=== PATIENT | female | born 1945 | race Caucasian/White ===

== ENCOUNTER 2016-06-19 18:53 | Emergency (ER) | payer SELFPAY ==
[2016-06-19 18:53] VITALS: BMI 37.5
[2016-06-19 20:33] VITALS: TEMP 98.2
[2016-06-19] MEDS ORDERED: Dexamethasone 4 mg/1 ml IM STA (21:05)
[2016-06-19] MEDS ORDERED: Dexamethasone 4 mg/1 ml ONE (21:14)
--- NOTE | 2016-06-19 21:54 | C.PDOC ---
History Of Present Illness 70 year old patient, with a history of arthritis, presents to the ED complaining of bilateral knee pain and swelling since last night. Patient states the pain radiates to bilateral legs. Patient also complains of bilateral shoulder and arm pain. Patient denies taking any medications at home for the pain, any trauma, numbness or weakness. Time Seen by Provider: 06/19/16 20:43 Chief Complaint (Nursing): Lower Extremity Problem/Injury History Per: Patient History/Exam Limitations: no limitations Onset/Duration Of Symptoms: Days (1) Current Symptoms Are (Timing): Still Present Severity: Mild Pain Scale Rating Of: 3 Recent travel outside of the [place]: No Past Medical History Reviewed: Historical Data, Nursing Documentation, Vital Signs Vital Signs: Last Vital Signs Temp 98.2 F 06/19/16 20:30 Pulse 82 06/19/16 22:07 Resp 18 06/19/16 22:07 BP 118/68 06/19/16 22:07 Pulse Ox 96 06/20/16 02:29 - Medical History PMH: Arthritis, Asthma, COPD, Diabetes Surgical History: Cholecystectomy - [facility] Procedures CATARAC PHACOEMULS/ASPIR (01/16/13) ENDOSC POLYPECTOMY OF LG INTEST (09/12/12) INSERT LENS AT CATAR EXT (01/16/13) Family History: States: Unknown Family Hx - Social History Hx Tobacco Use: No Hx Alcohol Use: No Hx Substance Use: No - Immunization History Hx Tetanus Toxoid Vaccination: No Hx Influenza Vaccination: No Hx Pneumococcal Vaccination: No Review Of Systems Constitutional: Negative for: Fever Respiratory: Negative for: Shortness of Breath Musculoskeletal: Positive for: Shoulder Pain (b/l), Arm Pain (b/l), Other ( bilateral knee pain and swelling) Neurological: Negative for: Weakness, Numbness Physical Exam - Physical Exam Appears: Non-toxic, No Acute Distress Skin: Warm, Dry Eye(s): bilateral: Normal Inspection Respiratory: Normal Breath Sounds, No Rales, No Rhonchi Extremity: Normal ROM, No Calf Tenderness, Capillary Refill (within normal limits), Other (bilateral knees: (+)minimal tenderness on palpation and during movement (+)mild swelling (-)effusion (-)calf tenderness(+)good pedal pulses; (+ )swelling to bilateral malleolus) Extremity: Bilateral: Atraumatic, Normal Color And Temperature Pulses: Left Dorsalis Pedis: Normal, Right Dorsalis Pedis: Normal Neurological/Psych: Oriented x3, Normal Speech, Normal Cognition Gait: Steady ED Course And Treatment O2 Sat by Pulse Oximetry: 96 (RA) Progress Note: Plan: Decadron and Tramadol given. Patient is feeling relief of pain and is ambulatory in the ED. Patient is given instructions to follow up with PMD. Disposition Counseled Patient/Family Regarding: Diagnosis, Need For Followup, Rx Given - Disposition Referrals: Beronica Dye MD [Non-Staff] - Disposition: HOME/ ROUTINE Disposition Time: 21:51 Condition: STABLE Additional Instructions: Sigue con saha doctor primario en 1-2 cantu [facility] piernas Regresa si peor Prescriptions: Benzonatate [Tessalon Perles] 100 mg PO TID #20 sgl traMADol [Ultram] 50 mg PO TID #20 tab Cetirizine HCl [Zyrtec] 10 mg PO DAILY #20 capsule predniSONE [Prednisone] 20 mg PO DAILY #7 tab Instructions: Arthralgia (ED), Upper Respiratory Infection (ED) Print Language: CHADIAN - Clinical Impression Clinical Impression: Upper respiratory infection, Arthritis, Joint pain - PA / HEADEND TECHNICIAN / Resident Statement MD/DO has reviewed & agrees with the documentation as recorded. - Scribe Statement The provider has reviewed the documentation as recorded by the Scribe Belén Man All medical record entries made by the Scribe were at my direction and personally dictated by me. I have reviewed the chart and agree that the record accurately reflects my personal performance of the history, physical exam, medical decision making, and the department course for this patient. I have also personally directed, reviewed, and agree with the discharge instructions and disposition.
[2016-06-19 22:07] VITALS: BP 118/68; PULSE 82; RESP 18; O2SAT 96
== END 2016-06-19 22:20 | disposition home or self-care (01) ==
LOC: C.ER 18:53
DX: M13.862 Other specified arthritis, left knee (principal); M13.861 Other specified arthritis, right knee; J06.9 Acute upper respiratory infection, unspecified; M25.562 Pain in left knee; M25.561 Pain in right knee

== ENCOUNTER 2016-06-26 10:00 | Inpatient (IN) | payer MEDICAID, SELFPAY ==
[2016-06-26 10:01] VITALS: BMI 37.5
--- NOTE | 2016-06-26 12:03 | C.PDOC ---
History Of Present Illness 70 y/o female pmhx HTN presents to the ED with complains of SOB and cp and bilateral leg swelling worsening over the past 3 days. Pt was sent by the clinic. Pt denies fever, chills, chest pain, weakness, numbness or any other complaints. Time Seen by Provider: 06/26/16 11:26 Chief Complaint (Nursing): Lower Extremity Problem/Injury History Per: Patient History/Exam Limitations: no limitations Onset/Duration Of Symptoms: Days Current Symptoms Are (Timing): Worse Severity: Moderate Recent travel outside of the [place]: No Past Medical History Reviewed: Historical Data, Nursing Documentation, Vital Signs Vital Signs: Last Vital Signs Temp 97.5 F L 06/26/16 14:32 Pulse 78 06/26/16 16:40 Resp 22 06/26/16 16:40 BP 111/59 L 06/26/16 16:40 Pulse Ox 98 06/26/16 16:40 - Medical History PMH: Arthritis, Asthma, COPD, Diabetes, Gall Bladder Disease Surgical History: Cholecystectomy - [facility] Procedures CATARAC PHACOEMULS/ASPIR (01/16/13) ENDOSC POLYPECTOMY OF LG INTEST (09/12/12) INSERT LENS AT CATAR EXT (01/16/13) Family History: States: Unknown Family Hx - Social History Hx Tobacco Use: No Hx Alcohol Use: No Hx Substance Use: No - Immunization History Hx Tetanus Toxoid Vaccination: No Hx Influenza Vaccination: No Hx Pneumococcal Vaccination: No Review Of Systems Except As Marked, All Systems Reviewed And Found Negative. Constitutional: Negative for: Fever Cardiovascular: Negative for: Chest Pain Respiratory: Positive for: Shortness of Breath Musculoskeletal: Positive for: Other (bilateral leg swelling) Neurological: Negative for: Weakness, Numbness Physical Exam - Physical Exam Appears: Non-toxic, No Acute Distress Skin: Warm, Dry, No Rash Head: Atraumatic, Normacephalic Neck: Normal ROM, Supple Chest: Symmetrical Cardiovascular: Rhythm Regular, No Murmur Respiratory: Rales (bases bilaterally), No Rhonchi, No Wheezing Gastrointestinal/Abdominal: Soft Extremity: Normal ROM, Pedal Edema (bilateral), No Calf Tenderness Neurological/Psych: Oriented x3, Normal Speech ED Course And Treatment - Laboratory Results Result Diagrams: 06/26/16 11:58 06/26/16 11:58 O2 Sat by Pulse Oximetry: 97 (on room air) Pulse Ox Interpretation: Normal Medical Decision Making Medical Decision Making: pt with cp- r/o acs, pe, dvt. Plan: EKG, labs, CXR, UA, venous duplex Disposition - Disposition Disposition: HOSPITALIZED Disposition Time: 14:59 Condition: FAIR - Clinical Impression Clinical Impression: Chest pain - Scribe Statement The provider has reviewed the documentation as recorded by the Liloibrolo Tejeda Provider Attestation: All medical record entries made by the Tina were at my direction and personally dictated by me. I have reviewed the chart and agree that the record accurately reflects my personal performance of the history, physical exam, medical decision making, and the department course for this patient. I have also personally directed, reviewed, and agree with the discharge instructions and disposition. Decision To Admit - Pt Status Changed To: Hospital Disposition Of: Observation - . Bed Request Type: Telemetry Admitting Physician: Antelmo De Los Santos Patient Diagnosis: Chest pain
[2016-06-26 12:06] LABS: BASO # 0.1 K/uL (0.0-0.2); BASO % 0.9 % (0.0-2.0); EOS # 0.4 K/uL (0.0-0.7); EOS % 5.9 % (0.0-4.0); HEMATOCRIT 35.3 % (34.0-47.0); LYMPH # 2.2 K/uL (1.0-4.3); LYMPH % 31.8 % (20.0-40.0); MEAN CELL VOLUME 93.8 fL (81.0-99.0); MEAN CORPUSCULAR HEMOGLOBIN 30.8 pg (27.0-31.0); MEAN CORPUSCULAR HGB CONC 32.9 g/dL (33.0-37.0); MEAN PLATELET VOLUME 7.3 fL (7.2-11.7); MONO # 0.5 K/uL (0.0-0.8); MONO % 7.4 % (0.0-10.0); RED CELL DISTRIBUTION WIDTH 13.2 % (11.5-14.5); WHITE BLOOD COUNT 6.8 K/uL (4.8-10.8)
[2016-06-26 12:12] LABS: RBC URINE 1 /hpf (0-3); URINE BILIRUBIN NEGATIVE (NEGATIVE); URINE BLOOD NEGATIVE (NEGATIVE); URINE COLOR Yellow (YELLOW); URINE GLUCOSE (UA) NORMAL (Normal); URINE HYALINE CAST 0-2 /lpf (0-2); URINE KETONE NEGATIVE (NEGATIVE); URINE LEUKOCYTE ESTERASE NEG Leu/uL (Negative); URINE PROTEIN NEGATIVE (NEGATIVE); WBC URINE 1 /hpf (0-5)
[2016-06-26 12:15] LABS: INR 1.1; PARTIAL THROMBOPLASTIN TIME 26 SECONDS (21-34)
[2016-06-26 12:18] LABS: CHLORIDE 100 mmol/L (98-107); POTASSIUM 3.9 mmol/L (3.6-5.2); SODIUM 138 mmol/L (132-148)
[2016-06-26 12:21] LABS: ALB/GLOB RATIO 1.1 (1.0-2.1); ALKALINE PHOSPHATASE 91 U/L (38-126); ALT/SGPT 30 U/L (9-52); AST/SGOT 21 U/L (14-36); BILIRUBIN,TOTAL 0.5 mg/dL (0.2-1.3); BLOOD UREA NITROGEN 17 mg/dL (7-17); CALCIUM 8.4 mg/dl (8.6-10.4); CARBON DIOXIDE 27 mmol/L (22-30); GFR AFRICAN-AMERICAN > 60; GLUCOSE,RANDOM 104 mg/dL (65-105); TOTAL PROTEIN 6.4 g/dL (6.3-8.3)
--- NOTE | 2016-06-26 13:54 | RAD ---
PROCEDURE: CHEST RADIOGRAPH, 1 VIEW HISTORY: chest pain COMPARISON: 05/21/2016. FINDINGS: LUNGS: Clear. PLEURA: No pneumothorax or pleural fluid seen. CARDIOVASCULAR: Cardiomegaly. No evidence of acute, significant cardiovascular disease. OSSEOUS STRUCTURES: No significant abnormalities. VISUALIZED UPPER ABDOMEN: Normal. OTHER FINDINGS: None. IMPRESSION: No active disease. No acute/significant interval changes.
--- NOTE | 2016-06-26 16:07 | CP.PCM.HP ---
<Veronica Philip - Last Filed: 06/26/16 15:56> History of Present Illness - History of Present Illness History of Present Illness: CC: "chest pain and problems breathing" HPI: Patient is a 70 year old female with PMHx of asthma, arthritis and cataracts presenting for chest pain x 3 days associated with shortness of breath and productive cough. Patient says she was sitting down 3 days ago when she suddenly felt a squeezing, pressure like pain in her upper chest bilaterally. Patient says she felt short of breath and diaphoretic at this time. The pain never subsided and she continues to feel short of breath. Patient says she always has trouble breathing but it was been worse the past 3 days. She usually can walk 3 blocks without getting short of breath but it has been less recently. Patient reports using 2 pillows at night. Patient says her breathing is better at night because she uses Vicks rub. If she lays down during the day, her SOB and chest pain get worse. Patient has not had any of her medications for the past month. She reports using 3 inhalers but does not know which ones they are. Patient reports recent antibiotic use for a UTI but says she has finished the course. Patient denies fever, chills, headache, abdominal pain, nausea, vomiting, diarrhea, constipation, rash, dysuria. PMD: [place] PMH: asthma, arthritis, cataracts PSH: cholecystectomy and cataract repair FH: father: intestinal cancer, aunt - breast cancer, mom - healthy Social Hx: denies tobacco use, denies drinking, denies drug use Allergies: shrimp Present on Admission - Present on Admission Any Indicators Present on Admission: No Review of Systems - Constitutional Constitutional: absent: Chills, Fever - EENT Eyes: Blurred Vision Nose/Mouth/Throat: Nasal Congestion. absent: Sore Throat - Cardiovascular Cardiovascular: Chest Pain at Rest, Leg Edema, Orthopnea, Pedal Edema. absent: Palpitations - Respiratory Respiratory: Cough, Dyspnea, Excessive Mucous Production - Gastrointestinal Gastrointestinal: Heartburn. absent: Abdominal Pain, Constipation, Diarrhea, Nausea, Vomiting - Genitourinary Genitourinary: absent: Dysuria - Reproductive: Female Reproductive:Female: Post Menopausal - Musculoskeletal Musculoskeletal: absent: Numbness, Tingling - Integumentary Integumentary: absent: Rash, Unusual Bruising - Neurological Neurological: absent: Headaches - Endocrine Endocrine: absent: Fatigue, Palpitations - Hematologic/Lymphatic Hematologic: absent: Easy Bleeding, Easy Bruising Past Patient History - Infectious Disease Hx of Infectious Diseases: None - Past Medical History & Family History Past Medical History?: Yes Pertinent Family History: intestinal cancer, aunt - breast cancer, mom - healthy - Past Social History Smoking Status: Never Smoked Alcohol: None Drugs: Denies - PULMONARY Hx Asthma: Yes Hx Chronic Obstructive Pulmonary Disease (COPD): Yes - HEENT Hx HEENT Problems: Yes Hx Cataracts: Yes - ENDOCRINE/METABOLIC Hx Endocrine Disorders: Yes Other/Comment: borderline DM - MUSCULOSKELETAL/RHEUMATOLOGICAL Hx Arthritis: Yes - GASTROINTESTINAL Hx Gall Bladder Disease: Yes - PSYCHIATRIC Hx Substance Use: No - SURGICAL HISTORY Hx Cholecystectomy: Yes - ANESTHESIA Hx Anesthesia: Yes Hx Anesthesia Reactions: No Meds Allergies/Adverse Reactions: Allergies Allergy/AdvReac Type Severity Reaction Status Date / Time shrimp Allergy Severe RASH Verified 06/19/16 20:33 Physical Exam - Constitutional Appears: Non-toxic, No Acute Distress - Head Exam Head Exam: NORMAL INSPECTION - Eye Exam Eye Exam: EOMI - ENT Exam ENT Exam: Mucous Membranes Moist - Respiratory Exam Respiratory Exam: Accessory Muscle Use (scalenes), Clear to Auscultation Bilateral, NORMAL BREATHING PATTERN. absent: Decreased Breath Sounds, Rales, Rhonchi, Wheezes, Respiratory Distress - Cardiovascular Exam Cardiovascular Exam: REGULAR RHYTHM, +S1, +S2. absent: Gallop, JVD, Rubs, Systolic Murmur - GI/Abdominal Exam GI & Abdominal Exam: Normal Bowel Sounds, Soft, Tenderness (epigastric). absent : Distended, Firm, Guarding - Extremities Exam Extremities exam: Positive for: pedal edema (2+ pitting b/l, 1+ up to knees b/l) Additional comments: erythematous and warm b/l - Neurological Exam Neurological exam: Alert, Oriented x3 - Psychiatric Exam Psychiatric exam: Normal Affect, Normal Mood - Skin Skin Exam: Normal Color, Warm Results - Vital Signs Recent Vital Signs: Last Vital Signs Temp 97.5 F L 06/26/16 14:32 Pulse 83 06/26/16 15:33 Resp 17 06/26/16 15:33 BP 116/57 L 06/26/16 15:33 Pulse Ox 97 06/26/16 15:33 - Labs Result Diagrams: 06/26/16 11:58 06/26/16 11:58 Labs: Laboratory Results - last 24 hr 06/26/16 11:58 WBC 6.8 RBC 3.76 L Hgb 11.6 Hct 35.3 MCV 93.8 MCH 30.8 MCHC 32.9 L RDW 13.2 Plt Count 214 MPV 7.3 Neut % (Auto) 54.0 Lymph % (Auto) 31.8 Lynn % (Auto) 7.4 Eos % (Auto) 5.9 H Baso % (Auto) 0.9 Neut # 3.7 Lymph # 2.2 Lynn # 0.5 Eos # 0.4 Baso # 0.1 PT 12.3 H INR 1.1 APTT 26 D-Dimer, Quantitative < 200 Sodium 138 Potassium 3.9 Chloride 100 Carbon Dioxide 27 Anion Gap 16 BUN 17 Creatinine 0.7 Est GFR ( Amer) > 60 Est GFR (Non-Af Amer) > 60 Random Glucose 104 Calcium 8.4 L Total Bilirubin 0.5 AST 21 ALT 30 Alkaline Phosphatase 91 Troponin I 0.0130 NT-Pro-B Natriuret Pep 63.8 Total Protein 6.4 Albumin 3.4 L Globulin 3.0 Albumin/Globulin Ratio 1.1 Urine Color Yellow Urine Clarity Clear Urine pH 5.0 Ur Specific [place] 1.026 Urine Protein Negative Urine Glucose (UA) Normal Urine Ketones Negative Urine Blood Negative Urine Nitrate Negative Urine Bilirubin Negative Urine Urobilinogen 2.0 H Ur Leukocyte Esterase Neg Urine WBC (Auto) 1 Urine RBC (Auto) 1 Ur Squamous Epith Cells 2 Hyaline Casts 0-2 Assessment & Plan - Assessment and Plan (Free Text) Assessment: Chest Pain ASA 81mg PO daily after 325mg PO in ER Crestor 10mg PO HS Trop 0.0130 F/U ROMIs with EKGs at 6pm and 12am F/U HgbA1C, TSH, FLP CHF Possible CHF Cardiomegaly on CXR 06/26/16 Pedal edema with negative d dimer BNP 63.8 Added lisinopril 2.5mg PO daily Holding off on B-christine secondary to low BP and asthma Lasix 20mg IVP once F/U ECHO Pedal Edema Possibly secondary to CHF v. venous insufficiency F/U venous dopplers and ECHO Asthma CXR - no active disease Solumedrol 20mg IVP BID Albuterol 2.5mg INH RQ6 PRN Tessalon Perles 100mg PO TID Singulair 10mg PO daily Allergies Claritin 10mg PO daily Arthritis Motrin 400mg PO Q6H PRN Prophylaxis Protonix 40mg PO daily Heparin 5000U SC Q8 <Shaina De Los Santosn Gerald - Last Filed: 06/27/16 16:08> Results - Vital Signs Recent Vital Signs: Last Vital Signs Temp 97.6 F 06/27/16 12:00 Pulse 94 H 06/27/16 14:00 Resp 18 06/27/16 14:00 BP 137/62 06/27/16 14:15 Pulse Ox 96 06/27/16 14:00 - Labs Result Diagrams: 06/27/16 06:30 06/27/16 06:30 Attending/Attestation - Attestation I have personally seen and examined this patient.: Yes I have fully participated in the care of the patient.: Yes I have reviewed all pertinent clinical information: Yes Notes (Text): 06/27/16 16:07 Patient seen and examined at bedside with the resident at the time of admission Complains of bilateral lower extremity swelling We will obtain an echocardiogram and we will also request cardiology evaluation I discussed the plan of care with the resident and agree with the above history and physical and assessment/plan but the resident.
[2016-06-26] MEDS: Pantoprazole 40 mg EC Tab PO SCH (16:23)
--- NOTE | 2016-06-26 16:49 | VASCLAB ---
PROCEDURE: Lower Extremity Venous Duplex Exam. HISTORY: Pain / Swelling PRIORS: None. TECHNIQUE: Bilateral common femoral, femoral, popliteal and posterior tibial, peroneal and great saphenous veins were evaluated. Flow was assessed with color Doppler, compressibility, assessment of phasic flow and augmentation response. Report prepared by NATALY Smith, RVT FINDINGS: RIGHT: 1. Common Femoral Vein: 1.1. Compressibility - Fully compressible: Thrombus - None : Flow - Phasic: Augmentation -Normal: Reflux - None. 2. Femoral Vein: 2.1. Compressibility - Fully compressible: Thrombus - None : Flow - Phasic: Augmentation -Normal: Reflux - None. 3. Popliteal Vein: 3.1. Compressibility - Fully compressible: Thrombus - None : Flow - Phasic: Augmentation -Normal: Reflux - None. 4. Posterior Tibial Vein: 4.1. Compressibility - Not optimally obtained. 5. Peroneal Vein: 5.1. Compressibility - Not optimally obtained. 6. Great Saphenous Vein: 6.1. Compressibility - Fully compressible: Thrombus - None: Flow - Phasic: Augmentation - Normal: Reflux - None. LEFT: 1. Common Femoral Vein: 1.1. Compressibility - Fully compressible: Thrombus - None: Flow - Phasic: Augmentation -Normal: Reflux - None. 2. Femoral Vein: 2.1. Compressibility - Fully compressible: Thrombus - None: Flow - Phasic: Augmentation -Normal: Reflux - None. 3. Popliteal Vein: 3.1. Compressibility - Fully compressible: Thrombus - None : Flow - Phasic: Augmentation -Normal: Reflux - None. 4. Posterior Tibial Vein: 4.1. Compressibility - Not optimally obtained. 5. Peroneal Vein: 5.1. Compressibility - Not optimally obtained. 6. Great Saphenous Vein: 6.1. Compressibility - Fully compressible: Thrombus - None: Flow - Phasic: Augmentation - Normal: Reflux - None. OTHER FINDINGS: Due to swelling in the calf, bilateral peroneal and posterior tibial vein are not visualized. IMPRESSION: Right: No evidence of deep or superficial vein thrombosis of the right lower extremity visualized veins. Normal valve function noted of the right side. Left: No evidence of deep or superficial vein thrombosis of the left lower extremity visualized veins. Normal valve function noted of the left side.
[2016-06-26] MEDS: MethylPREDNISolone 40 mg Vial IV SCH (22:16)
[2016-06-27 06:45] LABS: CHLORIDE 99 mmol/L (98-107)
[2016-06-27 06:46] LABS: POTASSIUM 4.5 mmol/L (3.6-5.2); SODIUM 138 mmol/L (132-148)
[2016-06-27 06:48] LABS: ALB/GLOB RATIO 1.2 (1.0-2.1); BILIRUBIN,TOTAL 0.6 mg/dL (0.2-1.3); BLOOD UREA NITROGEN 19 mg/dL (7-17); CARBON DIOXIDE 25 mmol/L (22-30); CHOLESTEROL 167 mg/dL (0-199); GFR AFRICAN-AMERICAN > 60; TOTAL PROTEIN 6.5 g/dL (6.3-8.3)
[2016-06-27 06:49] LABS: ALKALINE PHOSPHATASE 99 U/L (38-126); ALT/SGPT 26 U/L (9-52); AST/SGOT 20 U/L (14-36); CALCIUM 8.3 mg/dl (8.6-10.4); GLUCOSE,RANDOM 141 mg/dL (65-105)
[2016-06-27 06:51] LABS: BASO % 0.3 % (0.0-2.0); EOS % 0.1 % (0.0-4.0); HEMATOCRIT 35.6 % (34.0-47.0); LYMPH # 1.4 K/uL (1.0-4.3); LYMPH % 20.3 % (20.0-40.0); MEAN CELL VOLUME 93.7 fL (81.0-99.0); MEAN CORPUSCULAR HEMOGLOBIN 31.1 pg (27.0-31.0); MEAN CORPUSCULAR HGB CONC 33.2 g/dL (33.0-37.0); MEAN PLATELET VOLUME 7.7 fL (7.2-11.7); MONO # 0.1 K/uL (0.0-0.8); MONO % 1.6 % (0.0-10.0); RED CELL DISTRIBUTION WIDTH 13.4 % (11.5-14.5); WHITE BLOOD COUNT 6.7 K/uL (4.8-10.8)
[2016-06-27] MEDS: Albuterol 0.083% Inhal Sol (2.5 mg/3 mL) UD INH PRN ×2 (07:35→13:21)
--- NOTE | 2016-06-27 07:38 | CP.PCM.PN ---
<Rajendra Kan - Last Filed: 06/27/16 21:52> Subjective - Date & Time of Evaluation Date of Evaluation: 06/27/16 Time of Evaluation: 07:00 - Subjective Subjective: PGY1 Medicine Note Patient seen and examined at bedside. No overnight events per nursing. Patient reports swelling and associated tenderness to the b/l lower extremities for the past 3 days. Extremely sensitive to touch. Also reports a recent 3 month history of flu. Tolerating diet, mildly constipated. Patient denies fever, chills, headache, abdominal pain, nausea, vomiting, diarrhea, rash, dysuria, or any additional acute complaints. Objective - Vital Signs/Intake and Output Vital Signs (last 24 hours): Temp Pulse Resp BP Pulse Ox 98 F 75 16 111/49 L 96 06/27/16 04:00 06/27/16 04:00 06/27/16 04:00 06/27/16 04:00 06/27/16 04:00 Intake and Output: 06/27/16 06/27/16 06:59 18:59 Intake Total 470 Output Total 700 Balance -230 - Medications Medications: Current Medications Albuterol Sulfate (Albuterol 0.083% Inhal Slime (2.5 Mg/3 Ml) Ud) 2.5 mg INH RQ6 PRN PRN Reason: Shortness of Breath Aspirin (Ecotrin) 81 mg PO DAILY [facility] Benzonatate (Tessalon Perles) 100 mg PO TID [facility] Last Admin: 06/26/16 20:14 Dose: 100 mg Heparin Sodium (Porcine) (Heparin) 5,000 units SC Q8 [facility] Last Admin: 06/27/16 06:02 Dose: 5,000 units Ibuprofen (Motrin Tab) 400 mg PO Q6 PRN PRN Reason: Pain, moderate (4-7) Influenza Virus Vaccine (Afluria) 45 mcg IM .ONCE ONE Stop: 06/28/16 10:01 Lisinopril (Zestril) 2.5 mg PO DAILY [facility] Loratadine (Claritin) 10 mg PO DAILY [facility] Methylprednisolone (Solu-Medrol) 20 mg IV Q12 [facility] Last Admin: 06/26/16 22:16 Dose: 20 mg Montelukast Sodium (Singulair) 10 mg PO DAILY [facility] Last Admin: 06/26/16 16:23 Dose: 10 mg Pantoprazole Sodium (Protonix Ec Tab) 40 mg PO DAILY [facility] Last Admin: 06/26/16 16:23 Dose: 40 mg Pneumococcal Polyvalent Vaccine (Pneumovax 23 Vaccine) 0.5 ml IM .ONCE ONE Stop: 06/28/16 10:01 Rosuvastatin Calcium (Crestor) 10 mg PO [facility] Last Admin: 06/26/16 22:16 Dose: 10 mg - Labs Labs: 06/27/16 06:30 06/27/16 06:30 PT 12.3 SECONDS (9.7-12.2) H 06/26/16 11:58 INR 1.1 06/26/16 11:58 APTT 26 SECONDS (21-34) 06/26/16 11:58 - Additional Findings Additional findings: - Constitutional Appears: Non-toxic, No Acute Distress - Head Exam Head Exam: NORMAL INSPECTION - Eye Exam Eye Exam: EOMI - ENT Exam ENT Exam: Mucous Membranes Moist - Respiratory Exam Respiratory Exam: Clear to Auscultation Bilateral, NORMAL BREATHING PATTERN. absent: Decreased Breath Sounds, Rales, Rhonchi, Wheezes, Respiratory Distress - Cardiovascular Exam Cardiovascular Exam: REGULAR RHYTHM, +S1, +S2. absent: Gallop, JVD, Rubs, Systolic Murmur - GI/Abdominal Exam GI & Abdominal Exam: Normal Bowel Sounds, Soft, Tenderness (epigastric). absent : Distended, Firm, Guarding - Extremities Exam Extremities exam: Positive for: pedal edema (2+ pitting b/l, 1+ up to knees b/l) Additional comments: b/l LE very sensitive to touch (light touch is extremely painful for patient). Resolved erythemia and warmth. - Neurological Exam Neurological exam: Alert, Oriented x3 - Psychiatric Exam Psychiatric exam: Normal Affect, Normal Mood - Skin Skin Exam: Normal Color, Warm Assessment and Plan - Assessment and Plan (Free Text) Assessment: Chest Pain ASA 81mg PO daily after 325mg PO in ER Crestor 10mg PO HS Trop 0.0130 ROMIs negative HgbA1C 6.3 TSH WNL, FLP WNL CHF Consult Cardio, Dr. Leonard, f/u recs -WOULD STOP PO STEROIDS, USE INHALED STEROIDS, ELEVATE LEGS, COMPRESSION STOCKINGS. Possible CHF Cardiomegaly on CXR 06/26/16 Pedal edema with negative d dimer BNP 63.8 Added lisinopril 2.5mg PO daily Holding off on B-christine secondary to low BP and asthma Lasix 20mg IVP once F/U ECHO (pending read) Pedal Edema Consult Cardio, Dr. Leonard, f/u recs -> likely due to PO steroids. switch to inhaled. Possibly secondary to CHF v. venous insufficiency venous dopplers - negative F/U ECHO (pending read) uric acid 5.9 N Asthma 06/27: STOP Solumedrol 20mg IVP BID; start Avelox 400mg IVPB qD CXR - no active disease Albuterol 2.5mg INH RQ6 PRN Tessalon Perles 100mg PO TID Singulair 10mg PO daily Allergies Claritin 10mg PO daily Arthritis Motrin 400mg PO Q6H PRN Prophylaxis Protonix 40mg PO daily Heparin 5000U SC Q8 <Antelmo De Los Santos M - Last Filed: 06/28/16 15:21> Objective - Vital Signs/Intake and Output Vital Signs (last 24 hours): Temp Pulse Resp BP Pulse Ox 98.7 F 70 18 132/73 95 06/28/16 08:36 06/28/16 08:36 06/28/16 08:36 06/28/16 04:00 06/28/16 08:36 Intake and Output: 06/28/16 06/28/16 06:59 18:59 Intake Total 840 Output Total 400 Balance 440 - Medications Medications: Current Medications Albuterol/Ipratropium (Duoneb 3 Mg/0.5 Mg (3 Ml) Ud) 3 ml INH RQ6 [facility] Aspirin (Ecotrin) 81 mg PO DAILY [facility] Last Admin: 06/28/16 10:06 Dose: 81 mg Benzocaine/Menthol (Cepacol Sore Throat) 1 david MT Q8 PRN PRN Reason: Sore Throat Benzonatate (Tessalon Perles) 100 mg PO TID [facility] Last Admin: 06/28/16 13:33 Dose: 100 mg Docusate Sodium (Colace) 100 mg PO BID [facility] Last Admin: 06/28/16 13:34 Dose: 100 mg Guaifenesin (Mucinex La) 600 mg PO BID [facility] Last Admin: 06/28/16 10:05 Dose: 600 mg Heparin Sodium (Porcine) (Heparin) 5,000 units SC Q8 [facility] Last Admin: 06/28/16 13:33 Dose: 5,000 units Moxifloxacin HCl (Avelox Iv 400mg/250ml Ns) 250 mls @ 167 mls/hr IVPB Q24H [facility] Last Admin: 06/27/16 17:00 Dose: 167 mls/hr Ibuprofen (Motrin Tab) 400 mg PO Q6 PRN PRN Reason: Pain, moderate (4-7) Last Admin: 06/28/16 00:52 Dose: 400 mg Loratadine (Claritin) 10 mg PO DAILY [facility] Last Admin: 06/28/16 10:05 Dose: 10 mg Montelukast Sodium (Singulair) 10 mg PO DAILY [facility] Last Admin: 06/28/16 10:06 Dose: 10 mg Pantoprazole Sodium (Protonix Ec Tab) 40 mg PO DAILY [facility] Last Admin: 06/28/16 10:06 Dose: 40 mg Rosuvastatin Calcium (Crestor) 10 mg PO HS [facility] Last Admin: 06/27/16 21:26 Dose: 10 mg - Labs Labs: 06/28/16 07:19 06/28/16 07:19 PT 12.3 SECONDS (9.7-12.2) H 06/26/16 11:58 INR 1.1 06/26/16 11:58 APTT 26 SECONDS (21-34) 06/26/16 11:58 Attending/Attestation - Attestation I have personally seen and examined this patient.: Yes I have fully participated in the care of the patient.: Yes I have reviewed all pertinent clinical information, including history, physical exam and plan: Yes Notes (Text): 06/28/16 15:18 Patient was seen and examined at bedside with the resident Patient still has bilateral lower extremity swelling and tenderness Drs. checked and they're negative for DVT Discussed with sterilizer machine operator We will stop the steroids as this is likely source of for bilateral swelling Echocardiogram report to seen and appreciated We will hold treatment for CHF as this patient unlikely has congestive heart failure
[2016-06-27] MEDS: Pantoprazole 40 mg EC Tab PO SCH (09:49)
[2016-06-27] MEDS: MethylPREDNISolone 40 mg Vial IV SCH (09:49)
[2016-06-27 14:36] LABS: URIC ACID 5.9 mg/dL (2.2-7.5)
--- NOTE | 2016-06-27 14:38 | CP.PCM.CON ---
History of Present Illness - History of Present Illness History of Present Illness: 70 y/o female with new onset of BL LARA. apparently new in onset. Pt c/o cough and dyspnea. has a hx of RAD and has not used inhalers x 1 month. Pt reports a hx of flu which lasted 3 months. with residual cough and wheezing. C/o of parasternal tenderness mainly with touch or cough. no cadiac hx, no dm, htn or dyslipidemia. Review of Systems - Constitutional Constitutional: As Per HPI, Fever - EENT Eyes: absent: As Per HPI, Blind Spots, Blurred Vision, Change in Vision, Decreased Night Vision, Diplopia, Discharge, Dry Eye, Exophthalmos, Floaters, Irritation, Itchy Eyes, Loss of Peripheral Vision, Pain, Photophobia, Requires Corrective Lenses, Sees Flashes, Spots in Vision, Tunnel Vision, Other Visual Disturbances, Loss of Vision, Other Nose/Mouth/Throat: absent: As Per HPI, Epistaxis, Nasal Congestion, Nasal Discharge, Nasal Obstruction, Nasal Trauma, Nose Pain, Post Nasal Drip, Sinus Pain, Sinus Pressure, Bleeding Gums, Change in Voice, Dental Pain, Dry Mouth, Dysphagia, Halitosis, Hoarsness, Lip Swelling, Mouth Lesions, Mouth Pain, Odynophagia, Sore Throat, Throat Swelling, Tongue Swelling, Facial Pain, Neck Pain, Neck Mass, Other - Cardiovascular Cardiovascular: As Per HPI, Chest Pain - Respiratory Respiratory: Cough, Dyspnea, Wheezing, Chest Congestion - Gastrointestinal Gastrointestinal: absent: As Per HPI, Abdominal Pain, Belching, Bloating, Change in Bowel Habits, Change in Stool Character, Coffee Ground Emesis, Constipation, Cramping, Diarrhea, Dyspepsia, Dysphagia, Early Satiety, Excessive Flatus, Fecal Incontinence, Heartburn, Hematemesis, Hematochezia, Loose Stools, Melena, Nausea, Odynophagia, Temesmus, Vomiting, Other - Musculoskeletal Musculoskeletal: absent: As Per HPI, Abnormal Gait, Arthralgias, Atrophy, Back Pain, Deformity, Joint Swelling, Limited Range of Motion, Loss of Height, Muscle Cramps, Muscle Weakness, Myalgias, Neck Pain, Numbness, Radiating Pain into Limb, Stiffness, Tingling, Other - Integumentary Integumentary: absent: As Per HPI, Acne, Alopecia, Bleeding Lesions, Change in Hair, Change in Nails, Change in Pigmentation, Changing Lesions, Dry Skin, Erythema, Furuncle, Hirsutism, Lesions, New Lesions, Non-Healing Lesions, Photosensitivity, Pruritus, Rash, Skin Pain, Skin Ulcer, Sores, Striae, Swelling , Unusual Bruising, Wounds, Jaundice, Other - Neurological Neurological: absent: As Per HPI, Abnormal Gait, Abnormal Hearing, Abnormal Movements, Abnormal Speech, Behavioral Changes, Burning Sensations, Confusion, Convulsions, Disequilibrium, Dizziness, Numbness, Focal Weakness, Frequent Falls , Headaches, Lack of Coordination, Loss of Vision, Memory Loss, Paresthesias, Radicular Pain, Restless Legs, Sensory Deficit, Syncope, Tingling, Tremor, Vertigo, Weakness, Other Visual Disturbances, Other - Endocrine Endocrine: absent: As Per HPI, Change in Body Appearance, Change in Libido, Cold Intolorance, Deepening of Voice, Excessive Sweating, Fatigue, Flushing, Heat Intolorance, Increase in Ring/Shoe/Hat Size, Palpitations, Polydipsia, Polyphagia, Polyuria, Other - Hematologic/Lymphatic Hematologic: absent: As Per HPI, Easy Bleeding, Easy Bruising, Lymphadenopathy, Other Past Patient History - Infectious Disease Hx of Infectious Diseases: None - Past Medical History & Family History Past Medical History?: Yes - Past Social History Smoking Status: Never Smoked - CARDIAC Hx Cardiac Disorders: No - PULMONARY Hx Respiratory Disorders: Yes Hx Asthma: Yes Hx Chronic Obstructive Pulmonary Disease (COPD): Yes - NEUROLOGICAL Hx Neurological Disorder: No - HEENT Hx HEENT Problems: Yes Hx Cataracts: Yes - RENAL Hx Chronic Kidney Disease: No - ENDOCRINE/METABOLIC Hx Endocrine Disorders: Yes Other/Comment: borderline DM - HEMATOLOGICAL/ONCOLOGICAL Hx Blood Disorders: No - INTEGUMENTARY Hx Dermatological Problems: No - MUSCULOSKELETAL/RHEUMATOLOGICAL Hx Musculoskeletal Disorders: Yes Hx Arthritis: Yes Hx Falls: No - GASTROINTESTINAL Hx Gastrointestinal Disorders: Yes Hx Gall Bladder Disease: Yes - GENITOURINARY/GYNECOLOGICAL Hx Genitourinary Disorders: No - PSYCHIATRIC Hx Psychophysiologic Disorder: No Hx Substance Use: No - SURGICAL HISTORY Hx Surgeries: Yes Hx Cataract Extraction: Yes Hx Cholecystectomy: Yes - ANESTHESIA Hx Anesthesia: Yes Hx Anesthesia Reactions: No Hx Malignant Hyperthermia: No Has any member of the family had a problem w/ anesthesia?: No Meds Allergies/Adverse Reactions: Allergies Allergy/AdvReac Type Severity Reaction Status Date / Time shrimp Allergy Severe RASH Verified 06/19/16 20:33 - Medications Medications: Current Medications Albuterol Sulfate (Albuterol 0.083% Inhal Slime (2.5 Mg/3 Ml) Ud) 2.5 mg INH RQ6 PRN PRN Reason: Shortness of Breath Last Admin: 06/27/16 13:21 Dose: 2.5 mg Aspirin (Ecotrin) 81 mg PO DAILY [facility] Last Admin: 06/27/16 09:49 Dose: 81 mg Benzonatate (Tessalon Perles) 100 mg PO TID [facility] Last Admin: 06/27/16 14:15 Dose: 100 mg Guaifenesin (Mucinex La) 600 mg PO BID [facility] Heparin Sodium (Porcine) (Heparin) 5,000 units SC Q8 [facility] Last Admin: 06/27/16 14:15 Dose: 5,000 units Ibuprofen (Motrin Tab) 400 mg PO Q6 PRN PRN Reason: Pain, moderate (4-7) Influenza Virus Vaccine (Afluria) 45 mcg IM .ONCE ONE Stop: 06/28/16 10:01 Lisinopril (Zestril) 2.5 mg PO DAILY [facility] Last Admin: 06/27/16 09:49 Dose: 2.5 mg Loratadine (Claritin) 10 mg PO DAILY [facility] Last Admin: 06/27/16 09:49 Dose: 10 mg Methylprednisolone (Solu-Medrol) 20 mg IV Q12 [facility] Last Admin: 06/27/16 09:49 Dose: 20 mg Montelukast Sodium (Singulair) 10 mg PO DAILY [facility] Last Admin: 06/27/16 09:49 Dose: 10 mg Pantoprazole Sodium (Protonix Ec Tab) 40 mg PO DAILY [facility] Last Admin: 06/27/16 09:49 Dose: 40 mg Pneumococcal Polyvalent Vaccine (Pneumovax 23 Vaccine) 0.5 ml IM .ONCE ONE Stop: 06/28/16 10:01 Rosuvastatin Calcium (Crestor) 10 mg PO HS [facility] Last Admin: 06/26/16 22:16 Dose: 10 mg Physical Exam - Constitutional Appears: Well - Head Exam Head Exam: ATRAUMATIC, NORMAL INSPECTION, NORMOCEPHALIC - Eye Exam Eye Exam: EOMI, Normal appearance, PERRL Pupil Exam: NORMAL ACCOMODATION, PERRL - Neck Exam Neck exam: Positive for: Normal Inspection - Respiratory Exam Respiratory Exam: Chest Wall Tenderness, Decreased Breath Sounds, Rhonchi, Wheezes - Cardiovascular Exam Cardiovascular Exam: REGULAR RHYTHM, +S1, +S2 - GI/Abdominal Exam GI & Abdominal Exam: Normal Bowel Sounds, Soft. absent: Tenderness - Extremities Exam Additional comments: PITTING EDEMA B/L LE WITH TENDERNESS. NO ERYTHEMA, NO WARMTH PULSES INTACT - Back Exam Back exam: NORMAL INSPECTION - Neurological Exam Neurological exam: Alert, CN II-XII Intact, Normal Gait, Oriented x3, Reflexes Normal - Psychiatric Exam Psychiatric exam: Normal Affect, Normal Mood - Skin Skin Exam: Dry, Intact, Normal Color, Warm Results - Vital Signs Recent Vital Signs: Last Vital Signs Temp 97 F L 06/27/16 08:00 Pulse 97 H 06/27/16 08:00 Resp 19 06/27/16 08:00 BP 137/62 06/27/16 14:15 Pulse Ox 96 06/27/16 08:00 - Labs Result Diagrams: 06/27/16 06:30 06/27/16 06:30 - EKG Data EKG Interpreted by: Myself EKG shows normal: Sinus rhythm Rate: Normal - EKG Data EKG comments: LOW VOLTAGE Assessment & Plan (1) Chest pain Status: Acute (2) Asthma exacerbation Status: Acute (3) Bronchitis Status: Acute (4) Influenza-like illness Status: Acute (5) Edema Status: Acute - Assessment and Plan (Free Text) Plan: PT WITH B/L EDEMA FOR 3-5 DAYS. I THINK THIS IS STEROID INDUCED, SHE STARTED STEROIDS ON 06-19-16. ECHO IS WNL, NML EF, NO CM, NO PHTN. LE DOPPLERS NEGATIVE FOR DVT. BNP LOW. ACEI IS NOT NEW AND THUS UNLIKELY THE CAUSE. CP IS LIKELY SECONDARY TO CHOSTOCHONDRITIS FROM COUGH. WOULD STOP PO STEROIDS, USE INHALED STEROIDS ELEVATE LEGS COMPRESSION STOCKINGS. RESTART INHALERS STABLE FOR TRANSFER TO TELE D/W DR WRIGHT AND RESIDENTS. 65 MIN TOTAL CARE.
[2016-06-27] MEDS: guaiFENesin 600 mg ER Tab PO SCH (17:00)
[2016-06-27] MEDS: Moxifloxacin IV 400mg/250ml NS 250 ML IVPB SCH (17:00)
[2016-06-28 07:29] LABS: BASO # 0.1 K/uL (0.0-0.2); BASO % 0.8 % (0.0-2.0); EOS # 0.2 K/uL (0.0-0.7); EOS % 1.9 % (0.0-4.0); LYMPH # 3.1 K/uL (1.0-4.3); LYMPH % 32.4 % (20.0-40.0); MEAN CELL VOLUME 94.5 fL (81.0-99.0); MEAN CORPUSCULAR HEMOGLOBIN 30.7 pg (27.0-31.0); MEAN CORPUSCULAR HGB CONC 32.5 g/dL (33.0-37.0); MEAN PLATELET VOLUME 7.8 fL (7.2-11.7); MONO # 0.7 K/uL (0.0-0.8); MONO % 7.2 % (0.0-10.0); RED CELL DISTRIBUTION WIDTH 13.4 % (11.5-14.5); WHITE BLOOD COUNT 9.6 K/uL (4.8-10.8)
--- NOTE | 2016-06-28 07:46 | CP.PCM.PN ---
<Rajendra Kan - Last Filed: 06/28/16 20:41> Subjective - Date & Time of Evaluation Date of Evaluation: 06/28/16 Time of Evaluation: 07:00 - Subjective Subjective: PGY1 Medicine Note Patient seen and examined at bedside. No overnight events per nursing. Patient reports swelling and associated tenderness to the b/l lower extremities is improving after stopping steroids. Tolerating diet, mildly constipated. Patient denies fever, chills, headache, abdominal pain, nausea, vomiting, diarrhea, rash , dysuria, or any additional acute complaints. Objective - Vital Signs/Intake and Output Vital Signs (last 24 hours): Temp Pulse Resp BP Pulse Ox 98.2 F 71 20 132/73 98 06/28/16 04:00 06/28/16 04:00 06/28/16 04:00 06/28/16 04:00 06/28/16 04:00 Intake and Output: 06/28/16 06/28/16 06:59 18:59 Intake Total 840 Output Total 400 Balance 440 - Medications Medications: Current Medications Albuterol Sulfate (Albuterol 0.083% Inhal Slime (2.5 Mg/3 Ml) Ud) 2.5 mg INH RQ6 PRN PRN Reason: Shortness of Breath Last Admin: 06/27/16 13:21 Dose: 2.5 mg Aspirin (Ecotrin) 81 mg PO DAILY [facility] Last Admin: 06/27/16 09:49 Dose: 81 mg Benzonatate (Tessalon Perles) 100 mg PO TID [facility] Last Admin: 06/27/16 17:00 Dose: 100 mg Guaifenesin (Mucinex La) 600 mg PO BID [facility] Last Admin: 06/27/16 17:00 Dose: 600 mg Heparin Sodium (Porcine) (Heparin) 5,000 units SC Q8 [facility] Last Admin: 06/28/16 05:42 Dose: 5,000 units Moxifloxacin HCl (Avelox Iv 400mg/250ml Ns) 250 mls @ 167 mls/hr IVPB Q24H [facility] Last Admin: 06/27/16 17:00 Dose: 167 mls/hr Ibuprofen (Motrin Tab) 400 mg PO Q6 PRN PRN Reason: Pain, moderate (4-7) Last Admin: 06/28/16 00:52 Dose: 400 mg Influenza Virus Vaccine (Afluria) 45 mcg IM .ONCE ONE Stop: 06/28/16 10:01 Loratadine (Claritin) 10 mg PO DAILY [facility] Last Admin: 06/27/16 09:49 Dose: 10 mg Montelukast Sodium (Singulair) 10 mg PO DAILY [facility] Last Admin: 06/27/16 09:49 Dose: 10 mg Pantoprazole Sodium (Protonix Ec Tab) 40 mg PO DAILY [facility] Last Admin: 06/27/16 09:49 Dose: 40 mg Pneumococcal Polyvalent Vaccine (Pneumovax 23 Vaccine) 0.5 ml IM .ONCE ONE Stop: 06/28/16 10:01 Rosuvastatin Calcium (Crestor) 10 mg PO HS [facility] Last Admin: 06/27/16 21:26 Dose: 10 mg - Labs Labs: 06/28/16 07:19 PT 12.3 SECONDS (9.7-12.2) H 06/26/16 11:58 INR 1.1 06/26/16 11:58 APTT 26 SECONDS (21-34) 06/26/16 11:58 - Additional Findings Additional findings: - Constitutional Appears: Non-toxic, No Acute Distress - Head Exam Head Exam: NORMAL INSPECTION - Eye Exam Eye Exam: EOMI - ENT Exam ENT Exam: Mucous Membranes Moist - Respiratory Exam Respiratory Exam: Clear to Auscultation Bilateral, NORMAL BREATHING PATTERN. absent: Decreased Breath Sounds, Rales, Rhonchi, Wheezes, Respiratory Distress - Cardiovascular Exam Cardiovascular Exam: REGULAR RHYTHM, +S1, +S2. absent: Gallop, JVD, Rubs, Systolic Murmur - GI/Abdominal Exam GI & Abdominal Exam: Normal Bowel Sounds, Soft, Tenderness (epigastric). absent : Distended, Firm, Guarding - Extremities Exam Extremities exam: Positive for: pedal edema (2+ pitting b/l, 1+ up to knees b/l) Additional comments: b/l LE swelling and sensitivity improving. Resolved erythemia and warmth. - Neurological Exam Neurological exam: Alert, Oriented x3 - Psychiatric Exam Psychiatric exam: Normal Affect, Normal Mood - Skin Skin Exam: Normal Color, Warm Assessment and Plan - Assessment and Plan (Free Text) Assessment: Chest Pain ASA 81mg PO daily after 325mg PO in ER Crestor 10mg PO HS Trop 0.0130 ROMIs negative HgbA1C 6.3 TSH WNL, FLP WNL CHF 06/28: F/U ECHO (pending read) Consult Cardio, Dr. Leonard, f/u recs -WOULD STOP PO STEROIDS, USE INHALED STEROIDS, ELEVATE LEGS, COMPRESSION STOCKINGS. Possible CHF Cardiomegaly on CXR 06/26/16 Pedal edema with negative d dimer BNP 63.8 Added lisinopril 2.5mg PO daily Holding off on B-christine secondary to low BP and asthma Lasix 20mg IVP once Pedal Edema 06/28: improving. Consult Cardio, Dr. Leonard, f/u recs -> likely due to PO steroids. switch to inhaled. F/U ECHO (pending read) Possibly secondary to CHF v. venous insufficiency venous dopplers - negative uric acid 5.9 N Asthma 06/28: Start Duonebs Q6H [facility] 06/27: STOP Solumedrol 20mg IVP BID; start Avelox 400mg IVPB qD CXR - no active disease Albuterol 2.5mg INH RQ6 PRN Tessalon Perles 100mg PO TID Singulair 10mg PO daily Constipation -Miralax once -Colace 100mg PO BID Allergies Claritin 10mg PO daily Arthritis Motrin 400mg PO Q6H PRN Prophylaxis Protonix 40mg PO daily Heparin 5000U SC Q8 <Antelmo De Los Santos - Last Filed: 06/29/16 09:20> Objective - Vital Signs/Intake and Output Vital Signs (last 24 hours): Temp Pulse Resp BP Pulse Ox 98.2 F 80 18 106/53 L 94 L 06/29/16 07:40 06/29/16 07:40 06/29/16 07:40 06/29/16 07:40 06/29/16 07:40 Intake and Output: 06/29/16 06/29/16 06:59 18:59 Intake Total 590 Balance 590 - Medications Medications: Current Medications Albuterol/Ipratropium (Duoneb 3 Mg/0.5 Mg (3 Ml) Ud) 3 ml INH RQ6 [facility] Last Admin: 06/29/16 08:56 Dose: Not Given Aspirin (Ecotrin) 81 mg PO DAILY [facility] Last Admin: 06/28/16 10:06 Dose: 81 mg Benzocaine/Menthol (Cepacol Sore Throat) 1 david MT Q8 PRN PRN Reason: Sore Throat Benzonatate (Tessalon Perles) 100 mg PO TID [facility] Last Admin: 06/28/16 18:24 Dose: 100 mg Docusate Sodium (Colace) 100 mg PO BID [facility] Last Admin: 06/28/16 18:24 Dose: 100 mg Guaifenesin (Mucinex La) 600 mg PO BID [facility] Last Admin: 06/28/16 18:24 Dose: 600 mg Heparin Sodium (Porcine) (Heparin) 5,000 units SC Q8 [facility] Last Admin: 06/29/16 05:14 Dose: 5,000 units Moxifloxacin HCl (Avelox Iv 400mg/250ml Ns) 250 mls @ 167 mls/hr IVPB Q24H [facility] Last Admin: 06/28/16 18:00 Dose: 167 mls/hr Ibuprofen (Motrin Tab) 400 mg PO Q6 PRN PRN Reason: Pain, moderate (4-7) Last Admin: 06/28/16 00:52 Dose: 400 mg Loratadine (Claritin) 10 mg PO DAILY [facility] Last Admin: 06/28/16 10:05 Dose: 10 mg Montelukast Sodium (Singulair) 10 mg PO DAILY [facility] Last Admin: 06/28/16 10:06 Dose: 10 mg Pantoprazole Sodium (Protonix Ec Tab) 40 mg PO DAILY [facility] Last Admin: 06/28/16 10:06 Dose: 40 mg Rosuvastatin Calcium (Crestor) 10 mg PO HS [facility] Last Admin: 06/28/16 22:12 Dose: 10 mg - Labs Labs: 06/29/16 06:04 06/29/16 06:04 PT 12.3 SECONDS (9.7-12.2) H 06/26/16 11:58 INR 1.1 06/26/16 11:58 APTT 26 SECONDS (21-34) 06/26/16 11:58 Attending/Attestation - Attestation I have personally seen and examined this patient.: Yes I have fully participated in the care of the patient.: Yes I have reviewed all pertinent clinical information, including history, physical exam and plan: Yes Notes (Text): 06/29/16 09:19 Patient was seen and examined at bedside with the resident Patient still has cough with mild expectoration Bilateral lower extremity swelling has improved to since admission Steroids have been discontinued and patient will continue on IV antibiotics Discussed with cardiology Discussed with the medical review coordinator and agree with the assessment and plan but the resident
[2016-06-28 07:47] LABS: CHLORIDE 101 mmol/L (98-107); POTASSIUM 4.1 mmol/L (3.6-5.2); SODIUM 141 mmol/L (132-148)
[2016-06-28 07:49] LABS: ALB/GLOB RATIO 1.3 (1.0-2.1); AST/SGOT 17 U/L (14-36); BILIRUBIN,TOTAL 0.3 mg/dL (0.2-1.3); CARBON DIOXIDE 25 mmol/L (22-30); GFR AFRICAN-AMERICAN > 60; TOTAL PROTEIN 5.8 g/dL (6.3-8.3)
[2016-06-28 07:50] LABS: ALKALINE PHOSPHATASE 83 U/L (38-126); ALT/SGPT 20 U/L (9-52); BLOOD UREA NITROGEN 22 mg/dL (7-17); CALCIUM 8.3 mg/dl (8.6-10.4); GLUCOSE,RANDOM 97 mg/dL (65-105); PHOSPHOROUS 4.1 mg/dL (2.5-4.5)
[2016-06-28 07:51] LABS: MAGNESIUM 2.2 mg/dL (1.6-2.3)
[2016-06-28] MEDS ORDERED: Influenza Virus Vaccine 45 mcg/0.5 ml Syr IM ONE (10:00)
[2016-06-28] MEDS ORDERED: Pneumococcal 23-Valent Vaccine IM ONE (10:00)
[2016-06-28] MEDS: guaiFENesin 600 mg ER Tab PO SCH ×2 (10:05→18:24)
[2016-06-28] MEDS: Pantoprazole 40 mg EC Tab PO SCH (10:06)
--- NOTE | 2016-06-28 10:42 | CP.PCM.PN ---
Subjective - Date & Time of Evaluation Date of Evaluation: 06/28/16 Time of Evaluation: 10:42 - Subjective Subjective: continued BLE pain. swelling decreased. less SOB. Objective - Vital Signs/Intake and Output Vital Signs (last 24 hours): Temp Pulse Resp BP Pulse Ox 98.7 F 70 18 132/73 95 06/28/16 08:36 06/28/16 08:36 06/28/16 08:36 06/28/16 04:00 06/28/16 08:36 Intake and Output: 06/28/16 06/28/16 06:59 18:59 Intake Total 840 Output Total 400 Balance 440 - Medications Medications: Current Medications Albuterol Sulfate (Albuterol 0.083% Inhal Slime (2.5 Mg/3 Ml) Ud) 2.5 mg INH RQ6 PRN PRN Reason: Shortness of Breath Last Admin: 06/27/16 13:21 Dose: 2.5 mg Aspirin (Ecotrin) 81 mg PO DAILY [facility] Last Admin: 06/28/16 10:06 Dose: 81 mg Benzocaine/Menthol (Cepacol Sore Throat) 1 david MT Q8 PRN PRN Reason: Sore Throat Benzonatate (Tessalon Perles) 100 mg PO TID [facility] Last Admin: 06/28/16 10:05 Dose: 100 mg Docusate Sodium (Colace) 100 mg PO DAILY [facility] Guaifenesin (Mucinex La) 600 mg PO BID [facility] Last Admin: 06/28/16 10:05 Dose: 600 mg Heparin Sodium (Porcine) (Heparin) 5,000 units SC Q8 [facility] Last Admin: 06/28/16 05:42 Dose: 5,000 units Moxifloxacin HCl (Avelox Iv 400mg/250ml Ns) 250 mls @ 167 mls/hr IVPB Q24H [facility] Last Admin: 06/27/16 17:00 Dose: 167 mls/hr Ibuprofen (Motrin Tab) 400 mg PO Q6 PRN PRN Reason: Pain, moderate (4-7) Last Admin: 06/28/16 00:52 Dose: 400 mg Loratadine (Claritin) 10 mg PO DAILY [facility] Last Admin: 06/28/16 10:05 Dose: 10 mg Montelukast Sodium (Singulair) 10 mg PO DAILY [facility] Last Admin: 06/28/16 10:06 Dose: 10 mg Pantoprazole Sodium (Protonix Ec Tab) 40 mg PO DAILY [facility] Last Admin: 06/28/16 10:06 Dose: 40 mg Polyethylene Glycol (Miralax) 17 gm PO ONCE ONE Stop: 06/28/16 11:01 Rosuvastatin Calcium (Crestor) 10 mg PO HS [facility] Last Admin: 06/27/16 21:26 Dose: 10 mg - Labs Labs: 06/28/16 07:19 06/28/16 07:19 PT 12.3 SECONDS (9.7-12.2) H 06/26/16 11:58 INR 1.1 06/26/16 11:58 APTT 26 SECONDS (21-34) 06/26/16 11:58 - Head Exam Head Exam: ATRAUMATIC, NORMAL INSPECTION, NORMOCEPHALIC - Eye Exam Eye Exam: EOMI, Normal appearance, PERRL Pupil Exam: NORMAL ACCOMODATION, PERRL - ENT Exam ENT Exam: Mucous Membranes Moist, Normal Exam - Neck Exam Neck Exam: Full ROM, Normal Inspection. absent: Lymphadenopathy - Respiratory Exam Respiratory Exam: Wheezes - Cardiovascular Exam Cardiovascular Exam: REGULAR RHYTHM, +S1, +S2. absent: Murmur - GI/Abdominal Exam GI & Abdominal Exam: Soft, Normal Bowel Sounds. absent: Tenderness - Extremities Exam Extremities Exam: Pedal Edema - Back Exam Back Exam: NORMAL INSPECTION - Neurological Exam Neurological Exam: Oriented x3 Assessment and Plan (1) Chest pain Status: Acute (2) Asthma exacerbation Status: Acute (3) Bronchitis Status: Acute (4) Influenza-like illness Status: Acute (5) Edema Status: Acute - Assessment and Plan (Free Text) Plan: EDEMA IMPROVED. STEROIDS D/C'D. HOWEVER SHE DID GET YESTERDAYS AM DOSE. DECREASE LIKELY SECONDARY TO ELEVATION AND OR D/C OF STEROIDS. CONTINUE TREATING RAD. 45 MIN
--- NOTE | 2016-06-28 10:52 | CARD ---
APPROVED REPORT EKG Measurement Heart [id number] <Conclusion> Normal sinus rhythm Low voltage in anterior leads. Abnormal ECG
[2016-06-28] MEDS ORDERED: POLYETHYLENE GLYCOL 3350 17 GM/Dose PACKET PO ONE (11:00)
[2016-06-28] MEDS: Albuterol-Ipratrop 3 mg / 0.5 (3 ml) UD INH SCH ×2 (16:06→19:23)
[2016-06-28] MEDS: Moxifloxacin IV 400mg/250ml NS 250 ML IVPB SCH (18:00)
[2016-06-29] MEDS: Albuterol-Ipratrop 3 mg / 0.5 (3 ml) UD INH SCH ×4 (01:20→19:48)
[2016-06-29 06:21] LABS: BASO # 0.1 K/uL (0.0-0.2); BASO % 0.8 % (0.0-2.0); EOS # 0.4 K/uL (0.0-0.7); EOS % 3.8 % (0.0-4.0); HEMATOCRIT 34.9 % (34.0-47.0); LYMPH # 2.2 K/uL (1.0-4.3); MEAN CELL VOLUME 93.9 fL (81.0-99.0); MEAN CORPUSCULAR HEMOGLOBIN 32.1 pg (27.0-31.0); MEAN CORPUSCULAR HGB CONC 34.2 g/dL (33.0-37.0); MEAN PLATELET VOLUME 7.9 fL (7.2-11.7); MONO # 0.6 K/uL (0.0-0.8); MONO % 6.3 % (0.0-10.0); NRBC % 0.1 % (0.0-2.0); RED CELL DISTRIBUTION WIDTH 13.5 % (11.5-14.5); WHITE BLOOD COUNT 10.1 K/uL (4.8-10.8)
[2016-06-29 06:40] LABS: CHLORIDE 99 mmol/L (98-107); POTASSIUM 4.2 mmol/L (3.6-5.2); SODIUM 141 mmol/L (132-148)
[2016-06-29 06:42] LABS: ALB/GLOB RATIO 1.2 (1.0-2.1); ALKALINE PHOSPHATASE 83 U/L (38-126); AST/SGOT 19 U/L (14-36); BILIRUBIN,TOTAL 0.6 mg/dL (0.2-1.3); BLOOD UREA NITROGEN 22 mg/dL (7-17); CARBON DIOXIDE 29 mmol/L (22-30); GFR AFRICAN-AMERICAN > 60; TOTAL PROTEIN 6.4 g/dL (6.3-8.3)
[2016-06-29 06:43] LABS: ALT/SGPT 25 U/L (9-52); CALCIUM 8.4 mg/dl (8.6-10.4); GLUCOSE,RANDOM 90 mg/dL (65-105); PHOSPHOROUS 4.2 mg/dL (2.5-4.5)
[2016-06-29] MEDS: Benzocaine/Menthol (Cepacol) Lozenge MT PRN (09:20)
[2016-06-29] MEDS: Pantoprazole 40 mg EC Tab PO SCH (09:20)
[2016-06-29] MEDS: guaiFENesin 600 mg ER Tab PO SCH ×2 (09:20→22:17)
--- NOTE | 2016-06-29 11:56 | CARD ---
APPROVED REPORT EXAM: Two-dimensional and M-mode echocardiogram with Doppler and color Doppler. Other Information Quality : GoodRhythm : NSR INDICATION Dyspnea Chest Pain RISK FACTORS Obesity M-Mode DIMENSIONS RVDd1.99 (2.1-3.2cm)Left Atrium (MM)4.02 (2.5-4.0cm) IVSd0.66 (0.7-1.1cm)Aortic Root2.73 (2.2-3.7cm) LVDd5.08 (4.0-5.6cm)Aortic Cusp Exc.1.84 (1.5-2.0cm) PWd0.86 (0.7-1.1cm)FS (%) 30 % LVDs3.55 (2.0-3.8cm)LVEF (%)57 (>50%) Mitral Valve MV E Iqndijjn28.4cm/sMV A Bowkvwrn203.2cm/sE/A ratio0.6 TDI E/Lateral E'0.0E/Medial E'0.0 Tricuspid Valve TR Peak [id number]/sTR Peak Gr.[id number] LEFT VENTRICLE The left ventricle is normal size. There is normal left ventricular wall thickness. The left ventricular function is normal. The left ventricular ejection fraction is within the normal range. The Ejection Fraction is >55%. No regional wall motion abnormalities noted. The left ventricular diastolic function is normal. No left ventricle thrombus noted on this study. There is no ventricular septal defect visualized. There is no left ventricular aneurysm. There is no mass noted in the left ventricle. RIGHT VENTRICLE The right ventricle is normal size. There is normal right ventricular wall thickness. The right ventricular systolic function is normal. ATRIA The left atrium is borderline dilated. The right atrium size is normal. The interatrial septum is intact with no evidence for an atrial septal defect. AORTIC VALVE The aortic valve is normal in structure and function. No aortic regurgitation is present. There is no aortic valvular stenosis. There is no aortic valvular vegetation. MITRAL VALVE The mitral valve is normal in structure and function. There is no evidence of mitral valve prolapse. There is no mitral valve stenosis. There is no mitral valve regurgitation noted. TRICUSPID VALVE The tricuspid valve is normal in structure and function. There is trace tricuspid regurgitation. Right ventricular systolic pressure is estimated at 30-40 mmHg. There is mild pulmonary hypertension. There is no tricuspid valve prolapse or vegetation. There is no tricuspid valve stenosis. PULMONIC VALVE The pulmonary valve is normal in structure and function. There is no pulmonic valvular regurgitation. There is no pulmonic valvular stenosis. GREAT VESSELS The aortic root is normal in size. The ascending aorta is normal in size. The pulmonary artery is normal. The IVC is normal in size and collapses >50% with inspiration. PERICARDIAL EFFUSION The pericardium appears normal. There is no pleural effusion. <Conclusion> The left ventricle is normal size. The Ejection Fraction is >55%. There is trace tricuspid regurgitation.
[2016-06-29] MEDS: Moxifloxacin IV 400mg/250ml NS 250 ML IVPB SCH (16:32)
--- NOTE | 2016-06-29 19:50 | CARD ---
APPROVED REPORT EKG Measurement Heart [id number] <Conclusion> Normal sinus rhythm Normal ECG
--- NOTE | 2016-06-29 19:54 | CARD ---
APPROVED REPORT EKG Measurement Heart [id number] CA [id number] <Conclusion> Normal sinus rhythm Low voltage QRS Borderline ECG
--- NOTE | 2016-06-29 20:46 | CP.PCM.PN ---
<CassandrarylandRajendra - Last Filed: 06/29/16 21:48> Subjective - Date & Time of Evaluation Date of Evaluation: 06/29/16 Time of Evaluation: 08:05 - Subjective Subjective: PGY1 Medicine Note Patient seen and examined at bedside. Patient reports swelling and associated tenderness to the b/l lower extremities continues to improve after stopping steroids. Her cough and shortness of breath remain unchanged from yesterday. Her back and arm pain are also unchanged (chronic arthritis). The patient today noted a bitemporal headache. Patient denies fever, chills, abdominal pain, nausea, vomiting, diarrhea, rash, dysuria or any additional acute complaints at this time. Objective - Vital Signs/Intake and Output Vital Signs (last 24 hours): Temp Pulse Resp BP Pulse Ox 98.0 F 91 H 20 91/44 L 97 06/29/16 15:52 06/29/16 16:00 06/29/16 15:52 06/29/16 15:52 06/29/16 15:52 Intake and Output: 06/29/16 06/30/16 18:59 06:59 Intake Total 600 Balance 600 - Medications Medications: Current Medications Acetaminophen (Tylenol 325mg Tab) 650 mg PO Q6 PRN PRN Reason: Headache Last Admin: 06/29/16 13:28 Dose: 650 mg Albuterol/Ipratropium (Duoneb 3 Mg/0.5 Mg (3 Ml) Ud) 3 ml INH RQ6 [facility] Last Admin: 06/29/16 19:48 Dose: 3 ml Aspirin (Ecotrin) 81 mg PO DAILY [facility] Last Admin: 06/29/16 09:20 Dose: 81 mg Benzocaine/Menthol (Cepacol Sore Throat) 1 david MT Q8 PRN PRN Reason: Sore Throat Last Admin: 06/29/16 09:20 Dose: 1 david Benzonatate (Tessalon Perles) 100 mg PO TID [facility] Last Admin: 06/29/16 13:26 Dose: 100 mg Docusate Sodium (Colace) 100 mg PO BID [facility] Last Admin: 06/29/16 17:41 Dose: 100 mg Guaifenesin (Mucinex La) 600 mg PO BID [facility] Last Admin: 06/29/16 09:20 Dose: 600 mg Heparin Sodium (Porcine) (Heparin) 5,000 units SC Q8 [facility] Last Admin: 06/29/16 13:26 Dose: 5,000 units Moxifloxacin HCl (Avelox Iv 400mg/250ml Ns) 250 mls @ 167 mls/hr IVPB Q24H [facility] Last Admin: 06/29/16 16:32 Dose: 167 mls/hr Ibuprofen (Motrin Tab) 400 mg PO Q6 PRN PRN Reason: Pain, moderate (4-7) Last Admin: 06/29/16 16:58 Dose: 400 mg Loratadine (Claritin) 10 mg PO DAILY [facility] Last Admin: 06/29/16 09:20 Dose: 10 mg Montelukast Sodium (Singulair) 10 mg PO DAILY [facility] Last Admin: 06/29/16 09:20 Dose: 10 mg Ondansetron HCl (Zofran Inj) 4 mg IVP Q6H PRN PRN Reason: Nausea/Vomiting Pantoprazole Sodium (Protonix Ec Tab) 40 mg PO DAILY [facility] Last Admin: 06/29/16 09:20 Dose: 40 mg Rosuvastatin Calcium (Crestor) 10 mg PO HS [facility] Last Admin: 06/28/16 22:12 Dose: 10 mg - Labs Labs: 06/29/16 06:04 06/29/16 06:04 PT 12.3 SECONDS (9.7-12.2) H 06/26/16 11:58 INR 1.1 06/26/16 11:58 APTT 26 SECONDS (21-34) 06/26/16 11:58 - Additional Findings Additional findings: - Constitutional Appears: Non-toxic, No Acute Distress - Head Exam Head Exam: NORMAL INSPECTION - Eye Exam Eye Exam: EOMI - ENT Exam ENT Exam: Mucous Membranes Moist - Respiratory Exam Respiratory Exam: Clear to Auscultation Bilateral, NORMAL BREATHING PATTERN. absent: Rales, Rhonchi, Wheezes, Respiratory Distress - Cardiovascular Exam Cardiovascular Exam: REGULAR RHYTHM, +S1, +S2. absent: Gallop, JVD, Rubs, Systolic Murmur - GI/Abdominal Exam GI & Abdominal Exam: Normal Bowel Sounds, Soft. absent: Distended, Firm, Guarding, Tenderness - Extremities Exam Extremities exam: Positive for: Tenderness (b/l LE TTP), pedal edema (b/l pitting from feet to knees) Additional comments: b/l LE swelling and sensitivity continue to improve. Resolved erythemia and warmth. - Neurological Exam Neurological exam: Alert, Oriented x3 - Psychiatric Exam Psychiatric exam: Normal Affect, Normal Mood - Skin Skin Exam: Normal Color, Warm Assessment and Plan - Assessment and Plan (Free Text) Plan: Chest Pain 06/29: Tender to palpation of upper chest wall and shoulders, likely associated with arthritis ASA 81mg PO daily after 325mg PO in ER Crestor 10mg PO HS Trop 0.0130 ROMIs negative HgbA1C 6.3 TSH WNL, FLP WNL CHF 06/29: ECHO EF>55%; trace TR; see full report Consult Cardio, Dr. Leonard, f/u recs -WOULD STOP PO STEROIDS, USE INHALED STEROIDS, ELEVATE LEGS, COMPRESSION STOCKINGS. Possible CHF Cardiomegaly on CXR 06/26/16 Pedal edema with negative d dimer BNP 63.8 Added lisinopril 2.5mg PO daily Holding off on B-christine secondary to low BP and asthma Lasix 20mg IVP once Pedal Edema 06/28-06/29: improving. Consult Cardio, Dr. Leonard, f/u recs -> likely due to PO steroids. switch to inhaled. F/U ECHO (pending read) Possibly secondary to CHF v. venous insufficiency venous dopplers - negative uric acid 5.9 N Asthma 06/28: Start Duonebs Q6H [facility] 06/27: STOP Solumedrol 20mg IVP BID; start Avelox 400mg IVPB qD CXR - no active disease Albuterol 2.5mg INH RQ6 PRN Tessalon Perles 100mg PO TID Singulair 10mg PO daily Constipation 06/29: pt having BMs - monitor -Miralax once -Colace 100mg PO BID Headache 06/29: Bitemporal headache Tylenol 650mg PO Q6 PRN Allergies Claritin 10mg PO daily Arthritis Motrin 400mg PO Q6H PRN Prophylaxis Protonix 40mg PO daily Heparin 5000U SC Q8 Zofran - nausea PT eval and treat <Antelmo De Los Santos - Last Filed: 06/30/16 13:44> Objective - Vital Signs/Intake and Output Vital Signs (last 24 hours): Temp Pulse Resp BP Pulse Ox 97.8 F 72 18 134/74 94 L 06/30/16 07:30 06/30/16 08:00 06/30/16 07:30 06/30/16 07:30 06/30/16 07:30 Intake and Output: 06/30/16 06/30/16 06:59 18:59 Intake Total 120 Balance 120 - Medications Medications: Current Medications Acetaminophen (Tylenol 325mg Tab) 650 mg PO Q6 PRN PRN Reason: Headache Last Admin: 06/30/16 07:45 Dose: 650 mg Albuterol/Ipratropium (Duoneb 3 Mg/0.5 Mg (3 Ml) Ud) 3 ml INH RQ6 [facility] Last Admin: 06/30/16 13:12 Dose: 3 ml Aspirin (Ecotrin) 81 mg PO DAILY [facility] Last Admin: 06/30/16 09:56 Dose: 81 mg Benzocaine/Menthol (Cepacol Sore Throat) 1 david MT Q8 PRN PRN Reason: Sore Throat Last Admin: 06/30/16 05:49 Dose: 1 david Benzonatate (Tessalon Perles) 100 mg PO TID [facility] Last Admin: 06/30/16 09:57 Dose: 100 mg Docusate Sodium (Colace) 100 mg PO BID [facility] Last Admin: 06/30/16 09:57 Dose: 100 mg Guaifenesin (Mucinex La) 600 mg PO BID [facility] Last Admin: 06/30/16 10:20 Dose: 600 mg Heparin Sodium (Porcine) (Heparin) 5,000 units SC Q8 [facility] Last Admin: 06/30/16 09:57 Dose: 5,000 units Moxifloxacin HCl (Avelox Iv 400mg/250ml Ns) 250 mls @ 167 mls/hr IVPB Q24H [facility] Last Admin: 06/29/16 16:32 Dose: 167 mls/hr Ibuprofen (Motrin Tab) 400 mg PO Q6 PRN PRN Reason: Pain, moderate (4-7) Last Admin: 06/29/16 16:58 Dose: 400 mg Loratadine (Claritin) 10 mg PO DAILY [facility] Last Admin: 06/30/16 09:57 Dose: 10 mg Montelukast Sodium (Singulair) 10 mg PO DAILY [facility] Last Admin: 06/30/16 09:57 Dose: 10 mg Ondansetron HCl (Zofran Inj) 4 mg IVP Q6H PRN PRN Reason: Nausea/Vomiting Pantoprazole Sodium (Protonix Ec Tab) 40 mg PO DAILY [facility] Last Admin: 06/30/16 09:57 Dose: 40 mg Rosuvastatin Calcium (Crestor) 10 mg PO HS [facility] Last Admin: 06/29/16 22:17 Dose: 10 mg - Labs Labs: 06/30/16 05:58 06/30/16 05:58 PT 12.3 SECONDS (9.7-12.2) H 06/26/16 11:58 INR 1.1 06/26/16 11:58 APTT 26 SECONDS (21-34) 06/26/16 11:58 Attending/Attestation - Attestation I have personally seen and examined this patient.: Yes I have fully participated in the care of the patient.: Yes I have reviewed all pertinent clinical information, including history, physical exam and plan: Yes Notes (Text): 06/30/16 13:44 Patient was seen and examined at bedside Patient feeling better. Shortness of breath improving Bilateral lower extremity swelling is also improving I discussed the plan of care with the resident and agree with the above assessment and plan by the resident
[2016-06-30] MEDS: Albuterol-Ipratrop 3 mg / 0.5 (3 ml) UD INH SCH ×3 (01:27→13:12)
[2016-06-30] MEDS: Benzocaine/Menthol (Cepacol) Lozenge MT PRN (05:49)
[2016-06-30 06:09] LABS: BASO # 0.1 K/uL (0.0-0.2); BASO % 0.7 % (0.0-2.0); EOS # 0.5 K/uL (0.0-0.7); EOS % 6.2 % (0.0-4.0); HEMATOCRIT 35.5 % (34.0-47.0); LYMPH # 2.1 K/uL (1.0-4.3); LYMPH % 27.7 % (20.0-40.0); MEAN CELL VOLUME 94.2 fL (81.0-99.0); MEAN CORPUSCULAR HGB CONC 32.9 g/dL (33.0-37.0); MEAN PLATELET VOLUME 7.7 fL (7.2-11.7); MONO # 0.5 K/uL (0.0-0.8); MONO % 6.4 % (0.0-10.0); NRBC % 0.1 % (0.0-2.0); RED CELL DISTRIBUTION WIDTH 13.4 % (11.5-14.5); WHITE BLOOD COUNT 7.7 K/uL (4.8-10.8)
[2016-06-30 06:28] LABS: CHLORIDE 98 mmol/L (98-107); POTASSIUM 4.4 mmol/L (3.6-5.2); SODIUM 141 mmol/L (132-148)
[2016-06-30 06:30] LABS: ALB/GLOB RATIO 1.2 (1.0-2.1); ALKALINE PHOSPHATASE 82 U/L (38-126); AST/SGOT 35 U/L (14-36); BILIRUBIN,TOTAL 0.6 mg/dL (0.2-1.3); BLOOD UREA NITROGEN 22 mg/dL (7-17); CARBON DIOXIDE 31 mmol/L (22-30); GFR AFRICAN-AMERICAN > 60; GLUCOSE,RANDOM 100 mg/dL (65-105)
[2016-06-30 06:31] LABS: ALT/SGPT 38 U/L (9-52); CALCIUM 8.2 mg/dl (8.6-10.4); MAGNESIUM 2.1 mg/dL (1.6-2.3); PHOSPHOROUS 4.7 mg/dL (2.5-4.5)
[2016-06-30 08:40] VITALS: BP 134/74; RESP 18; TEMP 97.8; O2SAT 94
[2016-06-30] MEDS: Pantoprazole 40 mg EC Tab PO SCH (09:57)
[2016-06-30] MEDS: guaiFENesin 600 mg ER Tab PO SCH (10:20)
--- NOTE | 2016-06-30 13:24 | CP.PCM.PN ---
Subjective - Date & Time of Evaluation Date of Evaluation: 06/30/16 Time of Evaluation: 13:21 - Subjective Subjective: EDEMA PEDAL ONLY. CONTINUED PAIN IN B/L LE OF UNKNOWN ETIOLOGY. LAYING SUPINE WITHOUT RESP DISTRESS. PERSISTENT COUGH. PER RN, PT IS SLEEPING MORE OVER PAST 24 HOURS. SHE IS VERY EASILY AROUSED. Objective - Vital Signs/Intake and Output Vital Signs (last 24 hours): Temp Pulse Resp BP Pulse Ox 97.8 F 72 18 134/74 94 L 06/30/16 07:30 06/30/16 08:00 06/30/16 07:30 06/30/16 07:30 06/30/16 07:30 Intake and Output: 06/30/16 06/30/16 06:59 18:59 Intake Total 120 Balance 120 - Medications Medications: Current Medications Acetaminophen (Tylenol 325mg Tab) 650 mg PO Q6 PRN PRN Reason: Headache Last Admin: 06/30/16 07:45 Dose: 650 mg Albuterol/Ipratropium (Duoneb 3 Mg/0.5 Mg (3 Ml) Ud) 3 ml INH RQ6 [facility] Last Admin: 06/30/16 13:12 Dose: 3 ml Aspirin (Ecotrin) 81 mg PO DAILY [facility] Last Admin: 06/30/16 09:56 Dose: 81 mg Benzocaine/Menthol (Cepacol Sore Throat) 1 david MT Q8 PRN PRN Reason: Sore Throat Last Admin: 06/30/16 05:49 Dose: 1 david Benzonatate (Tessalon Perles) 100 mg PO TID [facility] Last Admin: 06/30/16 09:57 Dose: 100 mg Docusate Sodium (Colace) 100 mg PO BID [facility] Last Admin: 06/30/16 09:57 Dose: 100 mg Guaifenesin (Mucinex La) 600 mg PO BID [facility] Last Admin: 06/30/16 10:20 Dose: 600 mg Heparin Sodium (Porcine) (Heparin) 5,000 units SC Q8 [facility] Last Admin: 06/30/16 09:57 Dose: 5,000 units Moxifloxacin HCl (Avelox Iv 400mg/250ml Ns) 250 mls @ 167 mls/hr IVPB Q24H [facility] Last Admin: 06/29/16 16:32 Dose: 167 mls/hr Ibuprofen (Motrin Tab) 400 mg PO Q6 PRN PRN Reason: Pain, moderate (4-7) Last Admin: 06/29/16 16:58 Dose: 400 mg Loratadine (Claritin) 10 mg PO DAILY [facility] Last Admin: 06/30/16 09:57 Dose: 10 mg Montelukast Sodium (Singulair) 10 mg PO DAILY [facility] Last Admin: 06/30/16 09:57 Dose: 10 mg Ondansetron HCl (Zofran Inj) 4 mg IVP Q6H PRN PRN Reason: Nausea/Vomiting Pantoprazole Sodium (Protonix Ec Tab) 40 mg PO DAILY [facility] Last Admin: 06/30/16 09:57 Dose: 40 mg Rosuvastatin Calcium (Crestor) 10 mg PO HS [facility] Last Admin: 06/29/16 22:17 Dose: 10 mg - Labs Labs: 06/30/16 05:58 06/30/16 05:58 PT 12.3 SECONDS (9.7-12.2) H 06/26/16 11:58 INR 1.1 06/26/16 11:58 APTT 26 SECONDS (21-34) 06/26/16 11:58 - Constitutional Appears: Well - Head Exam Head Exam: ATRAUMATIC, NORMAL INSPECTION, NORMOCEPHALIC - Eye Exam Eye Exam: EOMI, Normal appearance, PERRL Pupil Exam: NORMAL ACCOMODATION, PERRL - ENT Exam ENT Exam: Mucous Membranes Moist, Normal Exam - Neck Exam Neck Exam: Full ROM, Normal Inspection. absent: Lymphadenopathy - Respiratory Exam Respiratory Exam: Clear to Ausculation Bilateral, NORMAL BREATHING PATTERN - Cardiovascular Exam Cardiovascular Exam: REGULAR RHYTHM, +S1, +S2. absent: Murmur - GI/Abdominal Exam GI & Abdominal Exam: Soft, Normal Bowel Sounds. absent: Tenderness - Extremities Exam Extremities Exam: Full ROM, Normal Capillary Refill, Normal Inspection, Pedal Edema. absent: Joint Swelling - Back Exam Back Exam: NORMAL INSPECTION - Neurological Exam Neurological Exam: Alert, Awake, CN II-XII Intact, Oriented x3 - Psychiatric Exam Psychiatric exam: Normal Affect, Normal Mood - Skin Skin Exam: Dry, Intact, Normal Color, Warm Assessment and Plan (1) Chest pain Status: Acute (2) Asthma exacerbation Status: Acute (3) Bronchitis Status: Acute (4) Influenza-like illness Status: Acute (5) Edema Status: Acute - Assessment and Plan (Free Text) Plan: ECHO WNL EDEMA DECREASED OFF STEROIDS PAIN IS OF QUESTIONABLE ETIOLOGY WOULD CONSIDER CHECKING VIT D, B12, FOLIC ACID LEVELS CHECK CPK GIVEN STATIN. 35 MIN TOTAL CARE
--- NOTE | 2016-06-30 14:52 | CP.PCM.DIS ---
<Rajendra Kan - Last Filed: 07/01/16 02:36> Provider - Provider Date of Admission: 06/27/16 14:03 Attending physician: Antelmo De Los Santos MD Consults: Cardio: Dr. Leonard Time Spent in preparation of Discharge (in minutes): 40 Hospital Course - Lab Results Lab Results: Micro Results 06/27/16 18:36 Nose MRSA Culture - Final MRSA NOT DETECTED Most Recent Lab Values WBC 7.7 K/uL (4.8-10.8) 06/30/16 05:58 RBC 3.77 Mil/uL (3.80-5.20) L 06/30/16 05:58 Hgb 11.7 g/dL (11.0-16.0) 06/30/16 05:58 Hct 35.5 % (34.0-47.0) 06/30/16 05:58 MCV 94.2 fL (81.0-99.0) 06/30/16 05:58 MCH 31.0 pg (27.0-31.0) 06/30/16 05:58 MCHC 32.9 g/dL (33.0-37.0) L 06/30/16 05:58 RDW 13.4 % (11.5-14.5) 06/30/16 05:58 Plt Count 222 K/uL (130-400) 06/30/16 05:58 MPV 7.7 fL (7.2-11.7) 06/30/16 05:58 Neut % (Auto) 59.0 % (50.0-75.0) 06/30/16 05:58 Lymph % (Auto) 27.7 % (20.0-40.0) 06/30/16 05:58 [place] % (Auto) 6.4 % (0.0-10.0) 06/30/16 05:58 Eos % (Auto) 6.2 % (0.0-4.0) H 06/30/16 05:58 Baso % (Auto) 0.7 % (0.0-2.0) 06/30/16 05:58 Neut # 4.6 K/uL (1.8-7.0) 06/30/16 05:58 Lymph # 2.1 K/uL (1.0-4.3) 06/30/16 05:58 [place] # 0.5 K/uL (0.0-0.8) 06/30/16 05:58 Eos # 0.5 K/uL (0.0-0.7) 06/30/16 05:58 Baso # 0.1 K/uL (0.0-0.2) 06/30/16 05:58 PT 12.3 SECONDS (9.7-12.2) H 06/26/16 11:58 INR 1.1 06/26/16 11:58 APTT 26 SECONDS (21-34) 06/26/16 11:58 D-Dimer, Quantitative < 200 ng/mlDDU (0-243) 06/26/16 11:58 Sodium 141 mmol/L (132-148) 06/30/16 05:58 Potassium 4.4 mmol/L (3.6-5.2) 06/30/16 05:58 Chloride 98 mmol/L (98-107) 06/30/16 05:58 Carbon Dioxide 31 mmol/L (22-30) H 06/30/16 05:58 Anion Gap 16 (10-20) 06/30/16 05:58 BUN 22 mg/dL (7-17) H 06/30/16 05:58 Creatinine 0.9 MG/DL (0.7-1.2) 06/30/16 05:58 Est GFR ( Amer) > 60 06/30/16 05:58 Est GFR (Non-Af Amer) > 60 06/30/16 05:58 Random Glucose 100 mg/dL (65-105) 06/30/16 05:58 Hemoglobin A1c 6.3 % (4.2-6.5) 06/27/16 06:30 Uric Acid 5.9 mg/dL (2.2-7.5) 06/27/16 00:45 Calcium 8.2 mg/dl (8.6-10.4) L 06/30/16 05:58 Phosphorus 4.7 mg/dL (2.5-4.5) H 06/30/16 05:58 Magnesium 2.1 mg/dL (1.6-2.3) 06/30/16 05:58 Total Bilirubin 0.6 mg/dL (0.2-1.3) 06/30/16 05:58 AST 35 U/L (14-36) 06/30/16 05:58 ALT 38 U/L (9-52) 06/30/16 05:58 Alkaline Phosphatase 82 U/L (38-126) 06/30/16 05:58 Total Creatine Kinase 116 U/L (30-135) 06/27/16 00:45 CK-MB (Mass) 1.39 ng/mL (0.0-3.38) 06/27/16 00:45 Troponin I 0.0130 ng/mL (0.00-0.120) 06/26/16 11:58 Troponin I, Quant < 0.0120 ng/mL (0.00-0.120) 06/27/16 00:45 NT-Pro-B Natriuret Pep 63.8 pg/mL (0-900) 06/26/16 11:58 Total Protein 6.0 g/dL (6.3-8.3) L 06/30/16 05:58 Albumin 3.3 g/dL (3.5-5.0) L 06/30/16 05:58 Globulin 2.7 gm/dL (2.2-3.9) 06/30/16 05:58 Albumin/Globulin Ratio 1.2 (1.0-2.1) 06/30/16 05:58 Triglycerides 60 mg/dL (0-149) 06/27/16 06:30 Cholesterol 167 mg/dL (0-199) 06/27/16 06:30 LDL Cholesterol Direct 104 mg/dL (0-129) 06/27/16 06:30 HDL Cholesterol 39 mg/dL (30-70) 06/27/16 06:30 TSH 3rd Generation 1.50 mIU/L (0.46-4.68) 06/27/16 06:30 Urine Color Yellow (YELLOW) 06/26/16 11:58 Urine Clarity Clear (Clear) 06/26/16 11:58 Urine pH 5.0 (5.0-8.0) 06/26/16 11:58 Ur Specific [place] 1.026 (1.003-1.030) 06/26/16 11:58 Urine Protein Negative mg/dL (NEGATIVE) 06/26/16 11:58 Urine Glucose (UA) Normal mg/dL (Normal) 06/26/16 11:58 Urine Ketones Negative mg/dL (NEGATIVE) 06/26/16 11:58 Urine Blood Negative (NEGATIVE) 06/26/16 11:58 Urine Nitrate Negative (NEGATIVE) 06/26/16 11:58 Urine Bilirubin Negative (NEGATIVE) 06/26/16 11:58 Urine Urobilinogen 2.0 mg/dL (0.2-1.0) H 06/26/16 11:58 Ur Leukocyte Esterase Neg Anni/uL (Negative) 06/26/16 11:58 Urine WBC (Auto) 1 /hpf (0-5) 06/26/16 11:58 Urine RBC (Auto) 1 /hpf (0-3) 06/26/16 11:58 Ur Squamous Epith Cells 2 /hpf (0-5) 06/26/16 11:58 Hyaline Casts 0-2 /lpf (0-2) 06/26/16 11:58 - Hospital Course Hospital Course: Upon hospital admission: Patient is a 70 year old female with PMHx of asthma, arthritis and cataracts presenting for chest pain x 3 days associated with shortness of breath and productive cough. Patient says she was sitting down 3 days ago when she suddenly felt a squeezing, pressure like pain in her upper chest bilaterally. Patient says she felt short of breath and diaphoretic at this time. The pain never subsided and she continues to feel short of breath. Patient says she always has trouble breathing but it was been worse the past 3 days. She usually can walk 3 blocks without getting short of breath but it has been less recently. Patient reports using 2 pillows at night. Patient says her breathing is better at night because she uses Vicks rub. If she lays down during the day, her SOB and chest pain get worse. Patient has not had any of her medications for the past month. She reports using 3 inhalers but does not know which ones they are. Patient reports recent antibiotic use for a UTI but says she has finished the course. Patient denies fever, chills, headache, abdominal pain, nausea, vomiting, diarrhea, constipation, rash, dysuria. PMD: [facility] PMH: asthma, arthritis, cataracts PSH: cholecystectomy and cataract repair FH: father: intestinal cancer, aunt - breast cancer, mom - healthy Social Hx: denies tobacco use, denies drinking, denies drug use Allergies: shrimp During hospital course, the patient was evaluated and treated for the following : (1) Chest Pain for which cardiac etiology was ruled out, pain was likely due to arthritis and patient has pain at all major joints. ROMIs were negative during her stay. She was treated prophylactically with ASA 81mg PO daily after 325mg PO in ER. Pt also treated with Crestor 10mg PO HS. TSH and FLP were WNL. HgbA1C was 6.3. (2) CHF and Pedal edema, for which ECHO showed EF>55%; trace TR ; see full report. Dr. Leonard, cardiology, recommended stopping PO steroids, as they were likely the source of her LE swelling. Soon after steroids were stopped , her lower extremity swelling began to markedly improve. She was also tx with lisinopril 2.5mg PO daily and Lasix 20mg IVP once. Venous dopplers - negative and uric acid 5.9 N. (3) Asthma tx with Duonebs Q6H ALIREZA, Avelox 400mg IVPB qD, Albuterol 2.5mg INH RQ6 PRN, Tessalon Perles 100mg PO TID, Singulair 10mg PO daily. CXR showed no active disease. (4) Headache tx with Tylenol 650mg PO Q6 PRN. (5) Allergies tx with Claritin 10mg PO daily. (6) Arthritis tx with Motrin 400mg PO Q6H PRN. Upon hospital discharge, the patient was provided with the following instructions: Patient is stable for discharge per Dr. De Los Santos. Patient should resume all medications as outlined in this document. Additionally, patient should take the new medications listed below (scripts provided). 1. Please make an appointment and follow up with your Primary Doctor in the [facility], within one week of discharge. The phone number is [phone]. 2. Please make an appointment and follow up with your Recruiting Consultant regarding your Arthritis. Patient should return to ED immediately if symptoms return or worsen. Instructions discussed with patient who understood and agreed. Newly prescribed medications: Levofloxacin 750mg PO daily, #4 This is a summary of the patient's hospital admission, see chart for comprehensive detail. - Date & Time of H&P Date of H&P: 06/26/16 Time of H&P: 15:56 Discharge Exam - Additional Findings Additional findings: - Constitutional Appears: Non-toxic, No Acute Distress - Head Exam Head Exam: NORMAL INSPECTION - Eye Exam Eye Exam: EOMI - ENT Exam ENT Exam: Mucous Membranes Moist - Respiratory Exam Respiratory Exam: Clear to Auscultation Bilateral, NORMAL BREATHING PATTERN. absent: Rales, Rhonchi, Wheezes, Respiratory Distress - Cardiovascular Exam Cardiovascular Exam: REGULAR RHYTHM, +S1, +S2. absent: Gallop, JVD, Rubs, Systolic Murmur - GI/Abdominal Exam GI & Abdominal Exam: Normal Bowel Sounds, Soft. absent: Distended, Firm, Guarding, Tenderness - Extremities Exam Extremities exam: Positive for: Tenderness (b/l LE TTP), pedal edema (b/l pitting from feet to knees, much improved) Additional comments: b/l LE swelling now mild, sensitivity to light touch has resolved. joint pain persists. Resolved erythemia and warmth. - Neurological Exam Neurological exam: Alert, Oriented x3 - Psychiatric Exam Psychiatric exam: Normal Affect, Normal Mood - Skin Skin Exam: Normal Color, Warm Discharge Plan - Discharge Medications Prescriptions: levoFLOXacin [Levaquin] 750 mg PO DAILY 4 Days - Follow Up Plan Condition: FAIR Disposition: HOME/ ROUTINE Instructions: Levofloxacin (By mouth), Heart Failure (DC), Chest Pain (DC), Heart Healthy Diet (DC) Additional Instructions: Patient is stable for discharge per Dr. De Los Santos. Patient should resume all medications as outlined in this document. Additionally, patient should take the new medications listed below (scripts provided). 1. Please make an appointment and follow up with your Primary Doctor in the [facility], within one week of discharge. The phone number is [phone]. 2. Please make an appointment and follow up with your Recruiting Consultant regarding your Arthritis. Patient should return to ED immediately if symptoms return or worsen. Instructions discussed with patient who understood and agreed. Newly prescribed medications: Levofloxacin 750mg PO daily, #4 Referrals: [facility] [Outside] <Antelmo De Los Santos - Last Filed: 07/01/16 17:39> Provider - Provider Date of Admission: 06/27/16 14:03 Attending physician: Antelmo De Los Santos MD Hospital Course - Lab Results Lab Results: Micro Results 06/27/16 18:36 Nose MRSA Culture - Final MRSA NOT DETECTED Most Recent Lab Values WBC 7.7 K/uL (4.8-10.8) 06/30/16 05:58 RBC 3.77 Mil/uL (3.80-5.20) L 06/30/16 05:58 Hgb 11.7 g/dL (11.0-16.0) 06/30/16 05:58 Hct 35.5 % (34.0-47.0) 06/30/16 05:58 MCV 94.2 fL (81.0-99.0) 06/30/16 05:58 MCH 31.0 pg (27.0-31.0) 06/30/16 05:58 MCHC 32.9 g/dL (33.0-37.0) L 06/30/16 05:58 RDW 13.4 % (11.5-14.5) 06/30/16 05:58 Plt Count 222 K/uL (130-400) 06/30/16 05:58 MPV 7.7 fL (7.2-11.7) 06/30/16 05:58 Neut % (Auto) 59.0 % (50.0-75.0) 06/30/16 05:58 Lymph % (Auto) 27.7 % (20.0-40.0) 06/30/16 05:58 [place] % (Auto) 6.4 % (0.0-10.0) 06/30/16 05:58 Eos % (Auto) 6.2 % (0.0-4.0) H 06/30/16 05:58 Baso % (Auto) 0.7 % (0.0-2.0) 06/30/16 05:58 Neut # 4.6 K/uL (1.8-7.0) 06/30/16 05:58 Lymph # 2.1 K/uL (1.0-4.3) 06/30/16 05:58 [place] # 0.5 K/uL (0.0-0.8) 06/30/16 05:58 Eos # 0.5 K/uL (0.0-0.7) 06/30/16 05:58 Baso # 0.1 K/uL (0.0-0.2) 06/30/16 05:58 PT 12.3 SECONDS (9.7-12.2) H 06/26/16 11:58 INR 1.1 06/26/16 11:58 APTT 26 SECONDS (21-34) 06/26/16 11:58 D-Dimer, Quantitative < 200 ng/mlDDU (0-243) 06/26/16 11:58 Sodium 141 mmol/L (132-148) 06/30/16 05:58 Potassium 4.4 mmol/L (3.6-5.2) 06/30/16 05:58 Chloride 98 mmol/L (98-107) 06/30/16 05:58 Carbon Dioxide 31 mmol/L (22-30) H 06/30/16 05:58 Anion Gap 16 (10-20) 06/30/16 05:58 BUN 22 mg/dL (7-17) H 06/30/16 05:58 Creatinine 0.9 MG/DL (0.7-1.2) 06/30/16 05:58 Est GFR ( Amer) > 60 06/30/16 05:58 Est GFR (Non-Af Amer) > 60 06/30/16 05:58 Random Glucose 100 mg/dL (65-105) 06/30/16 05:58 Hemoglobin A1c 6.3 % (4.2-6.5) 06/27/16 06:30 Uric Acid 5.9 mg/dL (2.2-7.5) 06/27/16 00:45 Calcium 8.2 mg/dl (8.6-10.4) L 06/30/16 05:58 Phosphorus 4.7 mg/dL (2.5-4.5) H 06/30/16 05:58 Magnesium 2.1 mg/dL (1.6-2.3) 06/30/16 05:58 Total Bilirubin 0.6 mg/dL (0.2-1.3) 06/30/16 05:58 AST 35 U/L (14-36) 06/30/16 05:58 ALT 38 U/L (9-52) 06/30/16 05:58 Alkaline Phosphatase 82 U/L (38-126) 06/30/16 05:58 Total Creatine Kinase 116 U/L (30-135) 06/27/16 00:45 CK-MB (Mass) 1.39 ng/mL (0.0-3.38) 06/27/16 00:45 Troponin I 0.0130 ng/mL (0.00-0.120) 06/26/16 11:58 Troponin I, Quant < 0.0120 ng/mL (0.00-0.120) 06/27/16 00:45 NT-Pro-B Natriuret Pep 63.8 pg/mL (0-900) 06/26/16 11:58 Total Protein 6.0 g/dL (6.3-8.3) L 06/30/16 05:58 Albumin 3.3 g/dL (3.5-5.0) L 06/30/16 05:58 Globulin 2.7 gm/dL (2.2-3.9) 06/30/16 05:58 Albumin/Globulin Ratio 1.2 (1.0-2.1) 06/30/16 05:58 Triglycerides 60 mg/dL (0-149) 06/27/16 06:30 Cholesterol 167 mg/dL (0-199) 06/27/16 06:30 LDL Cholesterol Direct 104 mg/dL (0-129) 06/27/16 06:30 HDL Cholesterol 39 mg/dL (30-70) 06/27/16 06:30 TSH 3rd Generation 1.50 mIU/L (0.46-4.68) 06/27/16 06:30 Urine Color Yellow (YELLOW) 06/26/16 11:58 Urine Clarity Clear (Clear) 06/26/16 11:58 Urine pH 5.0 (5.0-8.0) 06/26/16 11:58 Ur Specific [place] 1.026 (1.003-1.030) 06/26/16 11:58 Urine Protein Negative mg/dL (NEGATIVE) 06/26/16 11:58 Urine Glucose (UA) Normal mg/dL (Normal) 06/26/16 11:58 Urine Ketones Negative mg/dL (NEGATIVE) 06/26/16 11:58 Urine Blood Negative (NEGATIVE) 06/26/16 11:58 Urine Nitrate Negative (NEGATIVE) 06/26/16 11:58 Urine Bilirubin Negative (NEGATIVE) 06/26/16 11:58 Urine Urobilinogen 2.0 mg/dL (0.2-1.0) H 06/26/16 11:58 Ur Leukocyte Esterase Neg Anni/uL (Negative) 06/26/16 11:58 Urine WBC (Auto) 1 /hpf (0-5) 06/26/16 11:58 Urine RBC (Auto) 1 /hpf (0-3) 06/26/16 11:58 Ur Squamous Epith Cells 2 /hpf (0-5) 06/26/16 11:58 Hyaline Casts 0-2 /lpf (0-2) 06/26/16 11:58 Attending/Attestation - Attestation I have personally seen and examined this patient.: Yes I have fully participated in the care of the patient.: Yes I have reviewed all pertinent clinical information, including history, physical exam and plan: Yes Notes (Text): 07/01/16 17:35 Patient was seen and examined at bedside with the resident This is a late computer entry Patient to feeling much better Bilateral lower x-ray swelling is improving We will continue antibiotic for another 3 days upon discharge and then stop. I agree with the above discharge note with the resident
[2016-06-30] MEDS: Moxifloxacin IV 400mg/250ml NS 250 ML IVPB SCH (16:36)
[2016-06-30 16:49] VITALS: PULSE 78
== END 2016-06-30 16:51 | disposition home or self-care (01) | DRG 96 ==
LOC: C.ER 10:00 → C.9E 14:58 → C.9I 21:11 → OBSVTOIN 06-27 14:03 → C.6T 06-27 19:21
PROVIDERS: ADMIT Internal Medicine; ATTEND Internal Medicine
DX: J45.901 Unspecified asthma with (acute) exacerbation (principal); I50.9 Heart failure, unspecified; J44.9 Chronic obstructive pulmonary disease, unspecified; I11.0 Hypertensive heart disease with heart failure; Z90.49 Acquired absence of other specified parts of digestive tract; R73.03 Prediabetes; I87.2 Venous insufficiency (chronic) (peripheral); J11.1 Influenza due to unidentified influenza virus with other respiratory manifestations; K59.00 Constipation, unspecified; M79.89 Other specified soft tissue disorders; T38.0X5A Adverse effect of glucocorticoids and synthetic analogues, initial encounter; M19.90 Unspecified osteoarthritis, unspecified site

== ENCOUNTER 2016-07-10 07:12 | Emergency (ER) | payer SELFPAY ==
[2016-07-10 07:12] VITALS: BMI 37.5
[2016-07-10 07:26] VITALS: O2SAT 96
--- NOTE | 2016-07-10 08:30 | C.PDOC ---
History Of Present Illness 70-year-old female, presents to the emergency department with complaints of swelling to bilateral ankles. Patient not on any Lasix. Patient was admitted for same complaint last month, and had a normal echocardiogram. No other complaints. Time Seen by Provider: 07/10/16 07:50 Chief Complaint (Nursing): Lower Extremity Problem/Injury History Per: Patient History/Exam Limitations: no limitations Onset/Duration Of Symptoms: Days Current Symptoms Are (Timing): Still Present Past Medical History Reviewed: Historical Data, Nursing Documentation, Vital Signs Vital Signs: Last Vital Signs Temp 97.5 F L 07/10/16 09:45 Pulse 72 07/10/16 09:45 Resp 20 07/10/16 09:45 BP 122/65 07/10/16 09:45 Pulse Ox 96 07/10/16 09:48 - Medical History PMH: Arthritis, Asthma, COPD, Diabetes, Gall Bladder Disease Surgical History: Cholecystectomy - [facility] Procedures CATARAC PHACOEMULS/ASPIR (01/16/13) ENDOSC POLYPECTOMY OF LG INTEST (09/12/12) INSERT LENS AT CATAR EXT (01/16/13) Family History: States: Unknown Family Hx - Social History Hx Tobacco Use: No Hx Alcohol Use: No Hx Substance Use: No - Immunization History Hx Tetanus Toxoid Vaccination: No Hx Influenza Vaccination: Yes Hx Pneumococcal Vaccination: Yes Review Of Systems Except As Marked, All Systems Reviewed And Found Negative. Constitutional: Negative for: Fever, Chills Cardiovascular: Positive for: Edema. Negative for: Chest Pain Gastrointestinal: Negative for: Vomiting Musculoskeletal: Negative for: Back Pain Skin: Negative for: Rash Neurological: Negative for: Weakness, Numbness, Headache, Dizziness Physical Exam - Physical Exam Appears: Non-toxic, No Acute Distress Skin: Warm, Dry, No Rash Head: Atraumatic, Normacephalic Eye(s): bilateral: Normal Inspection, PERRL Nose: Normal Oral Mucosa: Moist Lips: Normal Appearing Neck: Normal ROM Cardiovascular: Rhythm Regular Respiratory: Normal Breath Sounds, No Accessory Muscle Use Extremity: Normal ROM, Pedal Edema (MILD, LE EDEMA AND ERYTHEMA. NO CELLULITIS. ) Neurological/Psych: Oriented x3, Normal Speech ED Course And Treatment O2 Sat by Pulse Oximetry: 96 Medical Decision Making Medical Decision Making: chronic lower leg edema, discomforts with Many presentations for same. Recent ADM 06/26/16 with normal card echo and normal bnp - NO daily lasix recommended consider lymphedema due to obesity- weigh loss and stockings educated. Disposition Doctor Will See Patient In The: Office Counseled Patient/Family Regarding: Studies Performed, Diagnosis - Disposition Referrals: [facility] [Outside] [facility] [Outside] Disposition: HOME/ ROUTINE Disposition Time: 09:47 Condition: GOOD Additional Instructions: mantiene las piernas elevadas giovanni puede Amy medias para bajar la edema [place] Sigue en la Clin[facility] Instructions: Leg Edema (ED) Print Language: ENGLISH - Clinical Impression Clinical Impression: Joint swelling, Leg edema - Scribe Statement The provider has reviewed the documentation as recorded by the Scribrolo Coker All medical record entries made by the Scribe were at my direction and personally dictated by me. I have reviewed the chart and agree that the record accurately reflects my personal performance of the history, physical exam, medical decision making, and the department course for this patient. I have also personally directed, reviewed, and agree with the discharge instructions and disposition.
[2016-07-10 09:56] VITALS: BP 122/65; PULSE 72; RESP 20; TEMP 97.5
== END 2016-07-10 10:24 | disposition home or self-care (01) ==
LOC: C.ER 07:12
DX: M25.472 Effusion, left ankle (principal); M25.471 Effusion, right ankle; R60.0 Localized edema